=== PATIENT | female | born 1995 | race Caucasian/White ===

== ENCOUNTER 2020-03-20 18:35 | Emergency (ER) | payer OTHER, SELFPAY ==
--- NOTE | ~2020-03-20 | CT_ITS ---
EXAMINATION: CT abdomen pelvis w con INDICATION: Lower abdominal pain TECHNIQUE: Computed tomographic images of the abdomen and pelvis were obtained after the administrati on of 100 cc of Omnipaque 350 intravenous contrast. The dose-length product (DLP) was 173.18 mGy-cm. Automated exposure control and iterative reconstruction technique were employed. COMPARISON: None available FINDINGS: The lung bases are clear. The heart size is normal. The liver, spleen, pancreas, gallbladde r, and adrenal glands are normal. There is a 2 mm nonobstructing stone of the right kidney upper pole . The left kidney is unremarkable. No pathologically enlarged abdominal or pelvic lymph nodes are gloria ntified. There is no free intraperitoneal gas or evidence of bowel obstruction. An IUD is present in the uterus in expected position. There is a 3.4 cm cystic lesion of the left adnexa, most consistent with an ovarian cyst. The appendix is normal. A small focus of subcutaneous gas and fatty infiltratio n of the right buttock likely reflects an injection site. IMPRESSION: 1. No CT correlate for the patient's symptoms. Reviewed, dictated and finalized at location A. [facility] [employer] COORDINATOR
[2020-03-20 19:19] VITALS: BP 117/81; PULSE 84; RESP 18; TEMP 36.7; O2SAT 98
[2020-03-20 19:33] LABS: Basophils Absolute Auto 0.1 K/mm3 (0.0-0.1); Basophils Percent Auto 0.9 % (0.2-1.2); Eosinophils Absolute Auto 0.3 K/mm3 (0-0.3); Eosinophils Percent Auto 3.9 % (0-4.4); Hematocrit 35.7 % (37.0-47.0); Hemoglobin 12.1 g/dL (12.0-15.0); Immature Granulocyte Absolute 0.02 K/mm3 (0.00-0.031); Immature Granulocyte Percent A 0.2 % (0-0.5); Lymphocytes Absolute Auto 2.65 K/mm3 (0.9-3.2); Lymphocytes Percent Auto 30.4 % (18.3-44.2); Mean Corpuscular HGB Conc 33.9 g/dl (32-36); Mean Corpuscular Hemoglobin 31.6 pg (26-34); Mean Corpuscular Volume 93.2 fl (80-100); Monocytes Absolute Auto 0.6 K/mm3 (0.1-0.6); Monocytes Percent Auto 6.8 % (2.6-8.5); Neutrophils Percent Auto 57.8 % (45.5-73.1); Platelet Count Result 325 k/mm3 (150-375); Red Blood Count 3.83 M/mm3 (4.2-5.4); Red Cell Distribution Width 12.2 % (11.5-14.5); White Blood Count 8.7 K/mm3 (4.5-10.0)
[2020-03-20 19:54] LABS: Alanine Aminotransferase 16 U/L (4-35); Albumin Level 4.5 g/dL (3.5-5.1); Alkaline Phosphatase 46 U/L (38-126); Anion Gap 9 mmol/L (8-16); Aspartate Amino Transferase 29 U/L (14-36); Bilirubin,Total 0.3 mg/dL (0.2-1.3); Blood Urea Nitrogen 11 mg/dL (7-17); Calcium 9.6 mg/dL (8.4-10.2); Carbon Dioxide 28 mmol/L (22-30); Chloride 102 mmol/L (98-107); Estimated CRCL calculation 89 ml/min; Estimated Glomerular Filt Rate > 60; Glucose 103 mg/dL (65-105); Lipase 106 U/L (23-300); Potassium 3.8 mmol/L (3.4-5.0); Sodium 139 mmol/L (137-145)
[2020-03-20 22:02] VITALS: BP 125/80; PULSE 70; RESP 18; O2SAT 99
[2020-03-21 00:31] VITALS: BP 118/79; PULSE 75; RESP 16; O2SAT 100
--- NOTE | 2020-03-21 01:08 | ED.ABDPAIN ---
HPI - Abdominal Pain General Chief Complaint: Abdominal Pain Stated Complaint: pelvic pressure x 1 week, LLQ pain Time Seen by Provider: 03/21/20 01:01 Source: patient Mode of arrival: ambulatory Limitations: no limitations History of Present Illness HPI narrative: This patient is a 24 year old female with history of left lower abdominal pain intermittently x 1 week . PAtient reports she noticed some pain with sexual intercourse. She also reports intermittent sharp twinges to left lower abdomen. She also reports feeling pressure. She has no pain currently, nausea, vomiting or diarrhea. She denies urinary symptoms. She noticed yellow discharge today. 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 Related Data Allergies Allergy/AdvReac Type Severity Reaction Status Date / Time morphine Allergy Unknown CHOKING Verified 11/17/17 09:31 Review of Systems Review of Systems: All systems reviewed & are unremarkable except as noted in HPI and below Constitutional: Constitutional: Denies chills and Denies fever(s) Cardiovascular: Cardiovascular: Denies chest pain Respiratory: Respiratory: Denies dyspnea Gastrointestinal: Gastrointestinal: Reports abdominal pain, Denies diarrhea, Denies nausea and Denies vomiting Genitourinary: Genitourinary: Denies dysuria and Reports vaginal discharge [facility] Past Medical History Medical History (Updated 03/21/20 @ 04:35 by Oumou Worley MD) Patient denies medical problems Surgical History Surgical History (Updated 03/21/20 @ 01:29 by Oumou Worley MD) History of tonsillectomy Social History Social History (Updated 03/21/20 @ 01:29 by Oumou Worley MD) Smoking status: Never smoker Gender identity (if verbalized by the patient): Female Exam Const: General: alert Orientation/consciousness: patient oriented x3 Eyes: Pupils: Equal, round and reactive pupils present EOM: EOMs intact bilaterally Resp: Effort & Inspection: normal respiratory effort and no retractions Auscultation: clear to auscultation bilaterally Cardio: Rate: regular rate Rhythm: regular rhythm Heart sounds: no murmurs GI: GI Palp: Yes Soft to palpation, Yes Tenderness to palpation present (GI) (suprapubic), No Guarding due to palpation present (GI) and No Rigid due to palpation Auscultation: normal bowel sounds : Speculum Exam - Vagina: abnormal vaginal discharge yellow Bimanual exam- vagina & uterus: cervical motion tenderness Skin: General skin exam: normal color Rashes: no rashes Neuro: General: patient oriented x3 and moves all extremities Course Reevaluation(s) Reevaluation #1: I performed a pelvic exam and patient has cmt and llq tenderness. I was unable to see the IUD on exam. I performed a bedside ultrasound and there appeared to be a large cyst in left pelvis. I discussed with patient findings and discussed CT vs ultrasound. She wants to proceed with CT instead of waiting for die assembler. Date: 03/21/20 Time: 02:19 Vital Signs Vital signs: Vital Signs Temperature 98.0 F 03/20/20 19:19 Pulse Rate 84 03/20/20 19:19 Respiratory Rate 18 03/20/20 19:19 Blood Pressure 117/81 03/20/20 19:19 Pulse Oximetry 98 03/20/20 19:19 Temperature 97.2 F L 03/21/20 02:37 Pulse Rate 78 03/21/20 02:37 Respiratory Rate 20 03/21/20 02:37 Blood Pressure 116/80 03/21/20 02:37 Pulse Oximetry 98 03/21/20 02:37 MDM - Abdominal Pain Lab Data Attestation: I reviewed the patient's lab results. Result diagrams: 03/20/20 19:26 03/20/20 19:26 Labs: Lab Results 03/20/20 03/20/20 03/21/20 Range/Units 19:26 19:26 00:25 WBC 8.7 (4.5-10.0) K/mm3 RBC 3.83 L (4.2-5.4) M/mm3 Hgb 12.1 (12.0-15.0) g/dL Hct 35.7 L (37.0-47.0) % MCV 93.2 (80-100) fl MCH 31.6 (26-34) pg MCHC 33.9 (32-36) g/dl RDW 12.2 (11.5-14.5) % Plt Count 325 (150-375) k/mm3 MPV 10.0 (7.4-10.4) f
[2020-03-21 01:24] LABS: Add Urine Microscopic? YES; Appearance Urine Clear (Clear); Bacteria Urine Trace /hpf; Bilirubin Urine Negative (Negative); Blood Urine Negative (Negative); Color Urine Yellow (Yellow); Glucose Urine UA Negative (Negative); Ketones Urine Trace mg/dL (Negative); Leukocyte Esterase Ur Negative LEU/UL (Negative); Mucus Urine Rare /lpf; Nitrate Urine Negative (Negative); Protein Urine Negative (Negative); RBC Urine 0-2 /hpf (0-2); Specific Grav Ur 1.017 (1.001-1.035); Squamous Epithelial Cell Urine Few /hpf (Few); Urobilinogen Urine Negative mg/dL (<2.0); WBC Urine 0-3 /hpf
[2020-03-21] MEDS: DOXYCYCLINE HYCLATE 100 MG TABLET PO (02:24)
[2020-03-21] MEDS: cefTRIAXone 250 MG VIAL IM (02:32)
[2020-03-21] MEDS: LIDOCAINE HCL 1% LOCAL INJ 20 ML VIAL (02:33)
[2020-03-21 02:37] VITALS: BP 116/80; PULSE 78; RESP 20; TEMP 36.2; O2SAT 98
== END 2020-03-21 05:05 | disposition home or self-care (01) ==
PROVIDERS: Emergency Medicine; Emergency Provider General Practice
DX: N83.202 Unspecified ovarian cyst, left side (principal); Z97.5 Presence of (intrauterine) contraceptive device
CPT/HCPCS: 36415; 74177; 80053; 81001; 81025; 83690; 85025; 87070; 87491; 87591; 87808; 96372; 99284; A9270; J0696; Q9967

== ENCOUNTER 2023-01-10 09:37 | Outpatient (CLI) | payer OTHER, SELFPAY | END 2023-01-10 09:38 | disposition home or self-care (01) | LOC: ANHBWCAUD 09:39 | PROVIDERS: PCP Nurse Practitioner Family; Visit Provider Otolaryngology | DX: H90.2 Conductive hearing loss, unspecified (principal); H61.20 Impacted cerumen, unspecified ear | CPT/HCPCS: 92552; 92556; 92567 ==

== ENCOUNTER 2025-02-04 10:28 | Emergency (ER) | payer OTHER, SELFPAY ==
--- NOTE | ~2025-02-04 | CT_ITS ---
EXAMINATION: CT brain wo con DATE: 02/04/2025 11:24 INDICATION: [place] headache TECHNIQUE: Computed tomography (CT) of the head was performed without intravenous contrast. Sagittal and coronal reconstructions were performed. The mA was adjusted according to patient size. Iterative reconstruction technique was employed. The dose-length product was 605.33 mGy-cm. COMPARISON: head CT dated 03/01/2019 FINDINGS: No acute intracranial hemorrhage, acute infarction or abnormal extra axial fluid collection. Ventricles are normal and symmetric. No mass/mass effect. The orbits, paranasal sinuses and mastoid air cells are normal. IMPRESSION: 1. Normal head CT. Reviewed, dictated and finalized at location A. IMPRESSION: 1. Normal head CT.
[2025-02-04 10:50] VITALS: BP 127/82; PULSE 94; RESP 18; TEMP 36.8; O2SAT 98
--- OUTSIDE RECORDS SUMMARY | 2025-02-04 11:12 | XMS_ITS | Clinical Summary ---
Author Organization [facility] Address [address] [place] [address] Phone Care Team Providers Care Unemployment Inspector Name Role Phone Provider, Unknown Primary Care Provider Unavaila ble Social History Tobacco Use Types Packs/Day Years Used Date Smoking Tobacco: Never Assessed Comments Unknown Sex and Gender Information Value Date Recorded Sex Assigned at Not on file Legal Sex Female 8:59 PM CDT Gender Identity Not on file Sexual Orientation Not on file Plan of Treatment Not on file Care Teams Unemployment Inspector Relationship Specialty Start Date End Date Provider, Unknown UNKNOWN PCP - General 09/08/16
--- OUTSIDE RECORDS SUMMARY | 2025-02-04 11:12 | XMS_ITS | Clinical Summary ---
Author Organization [facility] Address [address] [place] [id number] Care Team Providers Care Roll Reclaimer Name Role Phone Unavailable Primary Care Provider Unavailabl e Social History Tobacco Use Types Packs/Day Years Used Date Smoking Tobacco: Never Assessed Comments Unknown Sex and Gender Information Value Date Recorded Sex Assigned at Not on file Legal Sex Female 7:29 PM CDT Gender Identity Not on file Sexual Orientation Not on file Plan of Treatment Health Maintenance Due Date Last Done Comments Cervical Cancer Screening Pa p Smear (Age 30 to 64) Every 3 Years 1993 Annual Physical 1996 Hepatitis C 09/11/2011 DTaP, Tdap and Td Vaccines ( 1 - Tdap) 2012 Hepatitis B Vaccines (1 of 3 - 19+ 3-dose series) 2012 HPV Vaccines (1 - 3-dose SCD M series) 2020 Cervical Cancer Screening Pa p with HPV Testing (Age 30 to 64) Every 5 Years 09/11/2023 Cervical Cancer Screening with HPV 09/11/2023 COVID-19 Vaccine ( - 2023-2 5 season) 2025 Meningococcal B Vaccine Aged Out No l onger eligible based on patient's age to complete this topic Meningococcal Vaccine Aged Out No fariba raad eligible based on patient's age to complete this topic Pneumococcal Vaccine: Pediat rics (0 to 5 Years) and At-Risk Patients (6 to 49 Years) Aged Out No longer eligible b ased on patient's age to complete this topic RSV Immunizations Under 20 Months Aged Out No longer eligible based on patient's age to complete this topic
--- OUTSIDE RECORDS SUMMARY | 2025-02-04 11:12 | XMS_ITS | Data Portability ---
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 Balbuena Call office if worse, ER if life threating illness RTC 6 months and PRN She voices understanding of plan and agrees The patient gave verbal consent using TelePhonic services and the consent is documented in the medical record prior to using the service. The patient has been informed of what a TeleMedicine visit is. Patient is located at home. Provider is located at office. Names and roles of persons in addition to the patient and provider participating in telemedicine services include none. The patient had a 15 minute TeleMedicine consultation via phone call to discuss the following: [email or web address] Not available 11/03/2022 16:48:23 Plan of Treatment Reminders Order Date Submit Date Provider Last Modified By Organization Details Last Modified Time Details Appointments Follow Up 20 2024 05:20P M Malissa Donald NP Not available Not available Not available Lab None recorded. Referral physical therapist referral 2022 023 [facility], Occupational [facility], [address] [place], [address], 05/11/2023 16:43:21 Procedures None recorded. Surgeries None recorded. Imaging XR, cervical spine [address] ([facility]), [address] [place], [address], 09/29/2022 10:08:34 electromy ogram + nerve conductio n study - EMG/NC of BUE and BLE [address] [facility], [address] [place], [address], 01/05/2023 16:22:45 Medication Orders omeprazol e 40 mg capsule,d elayed release 2022 023 [id number], [address], [place], [id number], 11/03/2022 16:40:17 Ubrelvy 100 mg tablet 2022 023 [facility], [address] [place] [address], [address], 11/03/2022 16:43:52 Medrol (Suresh) 4 mg tablets in a dose pack [address] [facility] [id number] [place], [place], [id number], 11/03/2022 16:04:15 Patient TargetsNo targets recorded. Patient Instructions Encounter Date Encounter Id Patient Instructions Last Modified By Organization Details Last Modified Time 11/03/2022 [id number] Due to the COVID-19 (Novel Coronavirus) pandemic, it is within this context (and with the understanding that this method of patient encounter is in the patient s best interest as well as the health and safety of other patients and the public) that [facility] is being provided for this patient encounter rather than a gtjn-kl-owoi visit. This patient encounter is appropriate at this time. This patient has been advised of the potential risks and limitations of this mode of treatment (including, but not limited to, the absence of in-person examination) and has agreed to be treated in a remote fashion despite these risks. Any and all of the patient s /patient s family s questions on this issue have been answered, and I have made no promises or guarantees to the patient. The patient has also been advised to contact this office for worsening conditions or problems, and seek emergency medical treatment and/or call 911 if the patient deems either necessary. HPI and/or vitals, if listed, were provided by the patient. Due to the COVID-19 (Novel Coronavirus) pandemic, it is within this context (and with the understanding that this method of patient encounter is in the patient s best interest as well as the health and safety of other patients and the public) that [facility] is being provided for this patient encounter rather than a bfmv-ge-xxvc visit. This patient encounter is appropriate at this time. This patient has been advised of the potential risks and limitations of this mode of treatment (including, but not limited to, the absence of in-person examination) and has agreed to be treated in a remote fashion despite these risks. Any and all of the patient s /patient s family s questions on this issue have been answered, and I have made no promises or guarantees to the patient. The patient has also been advised to contact this office for worsening conditions or problems, and seek emergency medical treatment and/or call 911 if the patient deems either necessary. HPI and/or vitals, if listed, were provided by the patient. [email or web address] Not available 11/03/2022 16:47:42 Reason for Referral Physical Therapist Referral for Neck pain Referring Physician: Yamini Baker, Internal Medicine, Encounter Date: 09/15/2022 Results Created Date Observation Date Name Description Value Unit Range Abnormal Flag Note LastModifiedBy Organization Detail LastModifiedTime 03/07/2003/07/2022 INFLU DIAN A influenza A RNA, RT-PCR positi ve Not Available [facility] (Lab) [address] [place], [address], 03/07/2022 13:17:14 03/07/2003/07/2022 INFLU DIAN A influenza B RNA, RT-PCR negati ve Not Available [facility] (Lab) [address] [place], [address], 03/07/2022 13:17:14 03/07/20 22 03/07/2022 SARS- COV-2 RNA(C OVID1 9),RT -PCR sars-cov-2 RNA(covid19) ,RT-PCR negati ve This test has been autho rized by the FDA under an Emerg ency Use Autho rizat ion (EUA) for use by autho rized labor atori es. Negat saskia resul ts do not precl ude SARS- CoV-2 and shoul d not be used as the sole basis for treat ment or other patie nt manag ement decis ions. Test resul ts shoul d be corre lated with the clini magalie histo ry, epide miolo gical data, and other data avail able to the clini thomas evalu ating the patie nt. Cuca gooden w the Fact Sheet s for healt h care provi ders and patie nts at the [facility] jimi: https ://ww w.fda .gov/ media /1363 12/do wnloa d https ://ww w.fda .gov/ media /1363 13/do wnloa d https ://ww w.fda .gov/ media /1421 92/do wnloa d https ://ww w.fda .gov/ media /1421 91/do wnloa d Jeremy paul y: Real- Time RT-PC R Not Available [facility] (Lab) [address] [place], [address], 03/07/2022 13:13:14 03/07/20 22 03/07/2022 INFLU DIAN A/B ANTIG EN RAPID lot # [id number] Not Available [facility] (Lab) [address] [place], [address], 03/07/2022 13:08:53 03/07/20 22 03/07/2022 INFLU DIAN A/B ANTIG EN RAPID flu A negati ve negati ve Not Available [facility] (Lab) [address] [place], [address], 03/07/2022 13:08:53 03/07/20 22 03/07/2022 INFLU DIAN A/B ANTIG EN RAPID flu B negati ve negati ve THIS TEST CAN NOT DISTI NGUIS H INFLU DIAN A VIRUS SUBTY PES. ALSO, PLEAS E NOTE THAT A NEGAT SASKIA RESUL T DOES NOT EXCLU DE INFLU DAIN VIRUS INFEC TION. IF MORE CONCL USIVE TESTI NG IS RIKA ED, FOLLO W-UP CONFI RMATO RY TESTI NG WITH RT-PC R IS JOSÉ MOELLERD. Not Available [facility] (Lab) [address] [place], [address], 03/07/2022 13:08:53 03/07/20 22 03/07/2022 INFLU DIAN A/B ANTIG EN RAPID valid QC positi ve Not Available [facility] (Lab) [address] [place], [address], 03/07/2022 13:08:53 03/07/20 22 03/07/2022 INFLU DIAN A/B ANTIG EN RAPID source remote inpatient coder swab Not Available [facility] (Lab) [address] [place], [address], 03/07/2022 13:08:53 09/16/19 23 09/15/2022 XR, cervi magalie spine , 4 or 5 view [facility] [address] [place] [address] Patien t Name: GIANNA HOLBROOK Access ion #: [id number] Sex: F : 1995 0 Locati on: RAD Attend ing Physic nury: YAMINI BAKER Orderi ng Physic nury: YAMINI BAKER Exam Date: 023 11:21 AM Exam Name: XR C SPINE 4-5V Admitt ing Diagno sis(es ): RADIOL OGY REPORT - FINAL EXAM: XR C SPINE 4-5V HISTOR Y: CERVIC ALGIA 27-yea r-old female with neck pain, no known injury . COMPAR RADHA: None availa ble. TECHNI QUE: AP, latera l, obliqu e, and odonto id views of the cervic al spine were perfor med. FINDIN GS: No cervic al fractu re, listhe sis, or prever tebral soft tissue edema are identi fied. No signif icant degene rative change s. There is straig htenin g of normal cervic al lordos is. The obliqu e films do not demons trate signif icant bony forami nal stenos is bilate rally. There are small bilate ral C7 ribs. IMPRES [place]: Page 1 of 2 [facility] Name: GIANNA HOLBROOK NA Access ion #: [id number] Sex: F : 1995 0 Exam Date: 11:21 AM Exam Name: XR C SPINE 4-5V Admitt ing Diagno sis(es ): 1. No fractu re or signif icant degene rative change s of the cervic al spine. 2. Straig htenin g of normal cervic al lordos is may be due to muscle spasm. 3. Small bilate ral C7 ribs incide ntally noted. Create d and electr onical ly signed by: Brady orellana MD Signed Date: 11:47 AM (CT) Dictat ed by: Brady orellana MD DD: 11:47 AM (CT) DT: 11:47 AM (CT) Page 2 of [address] (Imaging) [address] [place] [address], [address], 09/15/2022 14:49:30 01/06/20 23 01/05/2023 elect romyo gram + nerve condu ction study No observ ation record ed. [email or web address] [facility] PT, OT, Speech Therapy [address] [facility] , [place], [address], 01/11/2023 11:26:42 Result Notes Documentation Provider Name and Address Organization Details Recorded Time Xr, Cervical Spine, 4 Or 5 View : [facility] [address] [place] [address] Patient Name: MARY ANNE HOLBROOK Sex: F : 1995 Location: [facility] Attending Physician: YAMINI BAKER Ordering Physician: YAMINI BAKER Exam Date: 09/15/2022 11:21 AM Exam Name: XR C SPINE 4-5V Admitting Diagnosis(es): RADIOLOGY REPORT - FINAL EXAM: XR C SPINE 4-5V HISTORY: CERVICALGIA 27-year-old female with neck pain, no known injury. COMPARISON: None available. TECHNIQUE: AP, lateral, oblique, and odontoid views of the cervical spine were performed. FINDINGS: No cervical fracture, listhesis, or prevertebral soft tissue edema are identified. No significant degenerative changes. There is straightening of normal cervical lordosis. The oblique films do not demonstrate significant bony foraminal stenosis bilaterally. There are small bilateral C7 ribs. IMPRESSION: Page 1 of 2 [facility] Patient Name: MARY ANNE HOLBROOK Sex: F : 1995 Exam Date: 09/15/2022 11:21 AM Exam Name: XR C SPINE 4-5V Admitting Diagnosis(es): 1. No fracture or significant degenerative changes of the cervical spine. 2. Straightening of normal cervical lordosis may be due to muscle spasm. 3. Small bilateral C7 ribs incidentally noted. Created and electronically signed by: Brady Gan MD Signed Date: 09/15/2022 11:47 AM (CT) Dictated by: Brady Gan MD (CT) (CT) Page 2 of 2 BRENDA Gauthier, [employer] 09/15/2022 14:49:30 Problems Name Problem SNOMED Code Status Onset Date Resolution Date Notes Provider Name and Address Organization Details Recorded Time Pain of right wrist 9536625134661 00 Active 2021 Not Available [facility] 3 11:08:46 Vitamin D deficiency 02845998 Active 2021 Not Available [facility] 3 11:08:46 Ganglion cyst of right wrist 8473857895717 09 Active 2021 Not Available [facility] 3 11:08:46 Fever 534156502 Active 2021 Not Available [facility] 3 11:08:46 Muscle tension pain 978484875 Active 2022 Not Available [facility] 3 11:08:46 Neck pain 08435379 Active 2022 Not Available [facility] 3 11:08:46 Paresthesi a 01014905 Active 2022 Not Available [facility] 3 11:08:46 Migraine 80613915 Active 2022 STELLA Granados-C [address], [place] [place] [address], [address] , [employer] 3 14:57:58 Generalize d anxiety disorder 70499857 Active 2022 STELLA Granados-C [address], [address], [address] , [employer] 3 14:58:08 Acid reflux 865815629 Active 2022 STELLA Granados-C [address], [address], [place], [address] , [employer] 3 14:58:11 Psoriasis 4060166 Active 2022 STELLA Granados-C [address], [address], [place], [address] , [employer] 3 14:58:16 Impacted cerumen of bilateral ears 7133990205377 108 Active 2022 Yamini Honggracy [facility] [address] [facility] [place] [address], [place], [address] , [employer] [facility] 3 14:58:22 Weight gain 3627673 Active 2022 Yamini Honggracy [facility] [address] [facility], [place] [address], [place], [address] , [employer] 3 14:58:31 Acute otitis media 1679411 Active 2022 [facility] [address] [facility], [place] [address], [place], [address] , [facility] 3 14:59:42 Allergic rhinitis 87920159 Active 2022 Adilene romero, [employer] [facility] 3 14:40:12 Pain of ear 508513989 Active 2022 Adilene romero, [employer] [facility] 3 17:32:58 Problem Notes None recorded. Medical Equipment None Reported. Allergies Allergen ID Allergen Name Allergen Category Reaction Reaction Severity Criticality Documentation Date Start Date Code Code System Note Provider Name and Address Organization Details Recorded Time 44032 morphine medicatio n anaphylax is Not available Not available 07/06/2022 7052 RxNorm Not Available [facility] 3 00:30:58 17430 Monistat Simple Therapy medicatio n Not available Not available Not available 07/06/2022 43863 72 RxNorm Not Available [facility] 3 00:30:58 Medications Name Sig Start Date Stop Date Status Note LastModified by Organization Details LastModified Time buspirone 5 mg tablet active Not Available Not Available No t Available doxycycline hyclate 100 mg capsule active Not Available Not Available N ot Available cetirizine 10 mg tablet Take 1 tablet every day by oral route. 2022 active Not Available Not Available Not Avai lable azithromyci n 250 mg tablet Take 1 dose pk by oral route. active Not Available Not Available No t Available nystatin 100,000 unit/gram topical ointment 06/23 completed Not Available Not Available Not Available fluconazole 150 mg tablet take 1 PO x1, may repeat dose in 3 days if needed active Not Available Not Available No t Available valacyclovi r 1 gram tablet 06/23 completed Not Available Not Available Not Available hydrocodone 5 mg-acetamin ophen 325 mg tablet 11/01 completed Not Available Not Available Not Available fluconazole 200 mg tablet 02/16 completed Not Available Not Available Not Available prednisone 20 mg tablet 06/23 completed Not Available Not Available Not Available rizatriptan 10 mg tablet Take 1 PO at the start of a migraine, if no relief can repeat dose in 2h, no more than 2 tabs per 24 hour period active Not Available Not Available No t Available propranolol ER 60 mg capsule,24 hr,extended release Take 1 capsule every day by oral route. active Not Available Not Available No t Available hydroxyzine pamoate 50 mg capsule Take 1 tab PO PRN FOR PANIC ATTACKS 06/23 completed Not Available Not Available Not Available penicillin V potassium 500 mg tablet active Not Available Not Available Not Available metronidazo le 500 mg tablet TAKE ONE TABLET BY MOUTH EVERY TWELVE HOURS 11/03 completed Not Available Not Available Not Available tretinoin 0.05 % topical cream active Not Available Not Available Not Available valacyclovi r 500 mg tablet active Not Available Not Available Not Available omeprazole 40 mg capsule,del ayed release Take 1 capsule every day by oral route. active Not Available Not Available No t Available amitriptyli ne 50 mg tablet Take 1 tablet every day by oral route at bedtime. active Not Available Not Available No t Available acetaminoph en 500 mg tablet active Not Available Not Available Not Available spironolact one 25 mg tablet active Not Available Not Available Not Available amoxicillin 500 mg tablet Take 1 tablet every 8 hours by oral route for 7 days. active Not Available Not Available No t Available propranolol 10 mg tablet active Not Available Not Available Not Available amitriptyli ne 25 mg tablet Take 1 tablet every day by oral route at bedtime. 06/23 completed Not Available Not Available Not Available benzonatate 100 mg capsule 06/09 completed Not Available Not Available Not Available triamcinolo ne acetonide 0.1 % topical ointment active Not Available Not Available Not Available clindamycin 2 % vaginal cream 10/13 /2022 completed Not Available Not Available Not Available hydroxyzine HCl 25 mg tablet Take 1 tab PO PRN FOR PANIC ATTACKS, max 3 tabs per day active Not Available Not Available No t Available metoprolol succinate ER 25 mg tablet,exte nded release 24 hr active Not Available Not Available Not Available ergocalcife rol (vitamin D2) 1,250 mcg (50,000 unit) capsule Take 1 capsule every week by oral route. 06/23 completed Not Available Not Available Not Available methylpredn isolone 4 mg tablets in a dose pack Take 1 dose pk by oral route. 11/03 completed Not Available Not Available Not Available clobetasol 0.05 % scalp solution active Not Available Not Available Not Available ondansetron 4 mg disintegrat ing tablet active Not Available Not Available N ot Available fluticasone propionate 50 mcg/actuati on nasal spray,suspe nsion [place] 1 spray every day by intranasa l route. active Not Available Not Available No t Available amoxicillin 875 mg-potassiu m clavulanate 125 mg tablet active Not Available Not Available Not Available amoxicillin 500 mg-potassiu m clavulanate 125 mg tablet TAKE ONE TABLET BY MOUTH EVERY TWELVE HOURS AFTER MEALS FOR 7 DAYS active Not Available Not Available No t Available escitalopra m 10 mg tablet active Not Available Not Available Not Available escitalopra m 20 mg tablet active Not Available Not Available Not Available ciprofloxac in 0.3 %-dexametha sone 0.1 % ear drops,suspe nsion active Not Available Not Available Not Available bupropion HCl XL 150 mg 24 hr tablet, extended release Take 1 tablet every day by oral route in the morning. 06/23 completed Not Available Not Available Not Available escitalopra m 5 mg tablet active Not Available Not Available Not Available selenium sulfide 2.25 % shampoo active Not Available Not Available Not Available aripiprazol e 2 mg tablet active Not Available Not Available Not Available quetiapine 50 mg tablet active Not Available Not Available Not Available lidocaine 2 % mucosal jelly in applicator active Not Available Not Available N ot Available Ubrelvy 100 mg tablet Take 1 PO at start of headache, if no relief can repeat dose in 2h, no more than 2 tabs per 24h period active Not Available Not Available No t Available Qulipta 60 mg tablet Take 1 tablet every day by oral route. 06/23 completed Not Available Not Available Not Available [employer] COVID-19 Antigen Home Test kit 06/23 completed Not Available Not Available Not Available Vitals Date Recorded Body mass index (BMI) Body height Oxygen saturation Oxygen saturation in Arterial blood by Pulse oximetry Heart rate Body temperature Body weight Systolic And Diastolic Provider Name and Address Organization Details Last Updated DateTime 3 24.2 kg/m2 154.94 cm 100 % 100 % 74 /min 97.7 [degF] 64238.8 2 g 114/72 mm[Hg] Not Available [facility] 3 00:28:43 Date Recorded Body height Body mass index (BMI) Body weight Body temperature Heart rate Oxygen saturation Oxygen saturation in Arterial blood by Pulse oximetry Systolic And Diastolic Provider Name and Address Organization Details Last Updated DateTime 3 154.94 cm 25.1 kg/m2 79766.7 9 g 98 [degF] 94 /min 98 % 98 % 118/72 mm[Hg] Monica Nj [facility] [employer] [facility] 3 11:48:53 Date Recorded Body height Provider Name an d Address Organization Details Last Updated DateTime 11/03/2022 154.94 cm Monica Nj [facility] 11/03/2022 16:03:59 Date Recorded Body height Provider Name an d Address Organization Details Last Updated DateTime 01/13/2022 154.94 cm Not Available [facility] 3 00:28:44 Date Recorded Body mass index (BMI) Body height Body weight Provider Name and Address Organization Details Last Updated DateTime 02/16/2022 21.5 kg/m2 154.94 cm 33587.53 g Not Available [facility] 07/06/2022 00:28:47 Social History Question Answer Notes LastModified by Organization Details LastModified Time Tobacco Smoking Status Former Smoker quit 12/16/21 Not Available [facility] 07/06/2022 00:26:53 Do You Have An Advance Directive? No [email or web address].0301 [id number] Information not available 07/06/2022 What Is Your Level Of Caffeine Consumption? Heavy MIGRATION.0301 [id number] Information not available 07/06/2022 In The 14 Days Before Symptom Onset, Have You Had Close Contact With A Laboratory-confi rmed COVID-19 While That Case Was Ill? No MIGRATION.030 [id number] Information not available 07/06/2022 In The 14 Days Before Symptom Onset, Have You Had Close Contact With A Person Who Is Under Investigation For COVID-19 While That Person Was Ill? No MIGRATION.0301 [id number] Information not available 07/06/2022 What Type Of Diet Are You Following? REGULAR MIGRATION.030 [id number] Information not available 07/06/2022 What Is The Highest Grade Or Level Of School You Have Completed Or The Highest Degree You Have Received? [id number] MIGRATION.030 [id number] Information not available 07/06/2022 Have There Been Any Changes To Your Family Or Social Situation? No MIGRATION.030 [id number] Information not available 07/06/2022 What Is The Fluoride Status Of Your Home? Unknown MIGRATION.0301 [id number] Information not available 07/06/2022 When Did You Quit Smoking? 6-10yearssincelastc igarette MIGRATION.030 [id number] Information not available 07/06/2022 Are There Any Guns Present In Your Home? No MIGRATION.0301 [id number] Information not available 07/06/2022 Do You Use Insect Repellent Routinely? No MIGRATION.0301 [id number] Information not available 07/06/2022 Where Do You Live? SingleLevelHouse MIGRATION.0301 [id number] Information not available 07/06/2022 Do You Have A Medical Power Of [place]? No MIGRATION.0301 [id number] Information not available 07/06/2022 What Was The Date Of Your Most Recent Tobacco Screening? 11/03/2022 [email or web address] Information not available 11/03/2022 Do You Have Any Pets? Yes MIGRATION.0301 [id number] Information not available 07/06/2022 What Is Your Relationship Status? Single MIGRATION.0301 [id number] Information not available 07/06/2022 Do You Use Your Seat Belt Or Car Seat Routinely? Yes MIGRATION.0301 [id number] Information not available 07/06/2022 Do You Have Smoke And Carbon Monoxide Detectors In Your Home? Yes MIGRATION.0301 [id number] Information not available 07/06/2022 Are You Passively Exposed To Smoke? No MIGRATION.0301 [id number] Information not available 07/06/2022 Are There Any Smokers In Your House? Yes MIGRATION.0301 [id number] Information not available 07/06/2022 How Much Tobacco Do You Smoke? No Was 1/2ppd MIGRATION.0301 [id number] Information not available 07/06/2022 Do You Use Sunscreen Routinely? No MIGRATION.0301 [id number] Information not available 07/06/2022 Have You Recently Traveled Abroad? No MIGRATION.0301 [id number] Information not available 07/06/2022 Do You Have Any Dietary Restrictions? No MIGRATION.0301 [id number] Information not available 07/06/2022 Sex: Female Functional Status Question Answer Note LastModified by [employer] Details LastModified Time Do you use any illicit or recreational drugs? No [id number] Information not available 07/06/2022 Do you or have you ever used any other forms of tobacco or nicotine? No [id number] Information not available 07/06/2022 What is your level of alcohol consumption? 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 Heavy [id number] Information not available 07/06/2022 Mental Status Question Answer Note LastModified by [employer] Details LastModified Time Do you feel stressed (tense, restless, nervous, or anxious, or unable to sleep at night)? [id number] Information not available 07/06/2022 Family History Relationship Description Onset Age of this Age Resolved Age Notes LastModified by Organization Details LastModified Time Paternal Grandmother Atrial fibrillation [id number] Not available 07/06/2022 00:27:29 Medical History Condition Response NERVE DISEASE N BLINDNESS N RHEUMATIC FEVER N KIDNEY STONES N BLADDER PROBLEMS N MRSA N OTHER # 1 N POLIO N LUNG DISEASE/DISORDER N HISTORY OF DRUG ABUSE N RADIATION / CHEMOTHERAPY N COPD N Other # 2 N BLOOD DISEASES N EAR OR HEARING PROBLEMS N MUMPS N SHINGLES N BOWEL PROBLEMS N DEPRESSION (INCLUDING POST ) N STROKE/TIA N ULCERS N BENIGN PROSTATIC HYPERPLASIA N MEASLES N HYPOTENSION N MYOCARDIAL INFARCTION N OBESITY N GERD/NAUSEA N ANEURYSM N URINARY/BLADDER/KIDNEY PROBLEMS N CORONARY ARTERY DISEASE (CAD) N ADDICTION CONCERNS N ENDOMETRIOSIS N Impotence N USE OF BLOOD THINNERS N SKIN PROBLEMS N GASTROINTESTINAL DISORDER N PERIPHERAL VASCULAR DISEASE N MUSCLE,JOINT OR BONE PROBLEMS N GASTROINTESTINAL BLEEDING N BLOOD CLOTS N ASTHMA N CATARACTS N ERECTILE DYSFUNCTION N VARICOSITIES N GI PROBLEMS N Low Testosterone N INFERTILITY N AIDS/HIV N CHEMOTHERAPY / RADIATION N LIVER DISEASE N MALE HYPOGONADISM N HYPERTENSION N Deficiency N TOURETTE'S N ANXIETY DISORDER N BLOOD TRANSFUSION N ANEMIA/BLOOD DISORDER N CHRONIC EAR INFECTIONS N BRONCHITIS N TUBERCULOSIS N GLAUCOMA N FOOT PROBLEM N DIVERTICULITIS N CHICKENPOX N SLEEP APNEA N INFECTIOUS DISEASE N HEART ARRHYTHMIA N PROSTATE N INSOMNIA N HIGH CHOLESTEROL / HYPERLIPIDEMIA N HYPERTHYROIDISM N EYE PROBLEMS N EDEMA N CHRONIC PAIN SYNDROME N HYPOTHYROIDISM N CAROTID BLOCKAGE N CONSTIPATION N BACK / NECK PROBLEMS N HAVE YOU BEEN HOSPITALIZED OR SEEN IN [facility] IN THE PAST YEAR ? N ATHEROSCLEROSIS N BREAST PROBLEMS N DIALYSIS N ECZEMA N OSTEOPOROSIS N ARTHRITIS N NO SIGNIFICANT PAST MEDICAL HISTORY N APPENDICITIS N DIABETES, TYPE N BAD TEETH N ENT N HEARTBURN / REFLUX N AUTISM SPECTRUM DISORDER (ASD) N HEPATITIS / LIVER DISEASE N GOUT N SLEEP DISORDER N ALZHEIMER'S DISEASE N Brain Problems N HERPES N DEMENTIA N HEADACHES/MIGRAINES N SEIZURES/EPILEPSY N VASCULAR DISEASE N PACEMAKER N Blood Disorder N DIZZINESS N HEART DISEASE/HEART PROBLEMS N KIDNEY DISEASE N MULTIPLE SCLEROSIS N CARDIAC ARRHYTHMIA N CANCER: SPECIFY N ATRIAL FIBRILLATION N Gall Stones N PULMONARY EMBOLISM N AUTOIMMUNE DISEASE N Gynecological HistoryNo gynecological history recorded. Obstetrics History GPAL:G 0 P 0 0 0 0 Immunizations Vaccine Type Date Status Note Provider Nam e and Address Organization Details Recorded Time COVID-19, mRNA, LNP-S, PF, 30 mcg/0.3 mL dose 12/01/2021 completed Not Available [facility] 3 11:08:47 COVID-19, mRNA, LNP-S, PF, 30 mcg/0.3 mL dose 11/10/2021 completed Not Available [facility] 3 11:08:47 Past Encounters Encounter ID Performer Location Encounter Start Date Encounter Closed Date Diagnosis/Indication Diagnosis SNOMED-CT Code Diagnosis ICD10 Code Diagnosis IMO Codes Diagnosis Note [id number] Ness washington MD [facility] [place] [address] [facility], [place] [address] [place] [address] 06/09/2021 00:00:00 06/09/2021 13:57:13 [id number] MD JAYME [facility] [place] [address] [place] [address] 06/21/2021 00:00:00 06/21/2021 12:14:23 [id number] MD REILLY CoonS[facility] [place] [address] [facility] [address] [place] [address] 06/24/2021 00:00:00 06/24/2021 15:50:04 [id number] MD JAYME Murphy_[facility] [place] [address] [place] [address] 07/19/2021 00:00:00 07/19/2021 09:32:02 [id number] MD REILLY [facility] [place] [address] [facility] [address] [place] [address] 07/22/2021 00:00:00 07/22/2021 20:52:54 [id number] MD JAYME [facility] [place] [address] [place] [address] 09/02/2021 00:00:00 09/02/2021 11:27:10 [id number] MD JAYME [facility] [place] [address] [place] [address] 10/21/2021 00:00:00 10/21/2021 11:36:01 [id number] MD REILLY [facility] [place] [address] [facility] [address] [place] [address] 11/01/2021 00:00:00 11/01/2021 13:10:14 [id number] MD JAYME Coon[facility] [place] [address] [address] 12/02/2021 00:00:00 12/02/2021 13:06:36 [id number] Ness washington MD [facility] [address] [address] 12/16/2021 00:00:00 12/16/2021 13:35:26 [id number] MEERA GranadosP-C [facility] [address] [address] 01/13/2022 00:00:00 01/13/2022 13:05:36 [id number] Ness washington MD [facility] [address] [address] 02/16/2022 00:00:00 02/16/2022 12:44:42 [id number] Ness washington MD [facility] [address] [address] 06/23/2022 00:00:00 06/23/2022 15:49:43 [id number] Malissa Donald NP [facility] [address] [address] 01/31/2022 00:00:00 02/01/2022 13:03:13 [id number] Malissa Donald NP [facility] [address], [address] [address] 02/27/2022 00:00:00 02/27/2022 18:50:05 [id number] Malissa Donald NP [facility] [address] [facility] [address] 04/03/2022 00:00:00 04/03/2022 18:49:05 [id number] Malissa Donald NP [facility] [address] [address] 05/09/2022 00:00:00 05/09/2022 18:15:41 [id number] Malissa Donald NP [facility] [address]43 [facility], [address] [address] 06/21/2022 00:00:00 06/21/2022 19:21:22 [id number] Ness washington MD [facility] [address] [facility], [place] [address] 09/15/2022 11:40:58 09/15/2022 12:08:12 Neck pain 61303978 M54.2 Offered muscle relaxant-s he declines she is worried about side effects Start Medrol Dosepak Get x-ray Start physical therapy If no improvemen t at follow-up will consider advanced imaging Paresthesia [id number] R20 .2 Get EMG/NC Medrol Dosepak as above ER precaution s discussed [id number] Malissa Donald NP [facility] [address] [place] [address] 09/28/2022 18:02:29 10/03/2022 14:20:30 [id number] Ness washington MD [facility] [address] [place] [address] 11/03/2022 16:02:30 11/03/2022 16:44:44 Pain of right wrist [id number] [address] Rivera/p surgery Migraine 72472100 G43.90 9 has tried and failed sumatripta n and rizatripta non daily amitriptyl ine and prn ubrelvy she is aware of side effects, risks, benefitsam itriptylin e increase did not help, propranolo l did not help eitherstop ped Qlipta due to GERD symptoms CT angio of brain was unremarkab leshe declines neurology referral- has seen Dr. Quiroz in the past, does not want another referralto ER if severe ROME/neuro symptoms Vitamin D deficiency 347 90402 E55.9 on supplement Generalize d anxiety disorder 13707353 F41.1 now [facility] [place] hydroxyzin ecall office if any change in mood or behavior Acid reflux 041960751 K2 1.9 on omeprazole -ease were side effects, risks, and benefitsRe commend she take it daily for 2 weeks and then try to transition to p.r.n. dosing only- call office if no improvemen t with daily dosing and we can add hs pepcidacid reduction lifestyle measures discussed Psoriasis 4792429 L40.9 improved after a course of clobetasol prnget appointmen t with Dermatolog y- already has referral, encouraged her to make appt Impacted c erumen of bilateral ears [id number] 640408 H61.23 get appt with ENT- has been referred Neck pain 02646050 M54.2 s/p XRdid not go to PTnow improved Paresthesia 06140528 R20 .2 Get EMG/NC - has scheduled for next monthER precaution s discussed [id number] Malissa Donald NP [facility] [address] [address] 12/25/2022 17:00:40 12/25/2022 17:29:51 [id number] Malissa Donald NP [facility] [address] [address] 03/22/2023 16:37:06 03/22/2023 17:14:33 [id number] Malissa Donald NP [facility] [address] [address] 06/11/2023 16:30:23 06/18/2023 10:00:31 [id number] Malissa Donald NP [facility] [address] [address] 12/18/2023 18:18:49 12/21/2023 10:59:34 [id number] [facility] [address] [address] 01/10/2024 18:32:54 01/11/2024 11:38:58 [id number] Malissa Donald NP [facility] [address] [address] 03/25/2024 10:51:24 03/25/2024 11:34:30 [id number] Mlaissa Donald NP [facility] [address] [address] 05/29/2024 18:38:46 05/29/2024 19:13:55 [id number] Malissa Donald NP [facility] [address] [address] 06/25/2024 14:12:18 06/25/2024 16:09:09 [id number] Malissa Donald NP [facility] [address] [address] 11/04/2024 15:44:16 11/05/2024 12:40:32 Health Concerns Section Related Observation LastModified by Organization Detai ls LastModified Time None Recorded Concern Status LastModified by Organization Details LastModified Time None Recorded Advance Directives Directive N: Payers Insurance Date Sequence Insurance Name Policy Number Policy Stoddard Covered Member ID Stoddard Member ID Guarantor Name 01/25/2025 1 [facility] (MEDICAID HMO) [id number] Mary Anne Moss [id number] Mary Anne Holbrook Notes Date Note Type Note Provider Name and Address Organization Details Recorded Time 09/15/2022 text/html Mary Anne presents today for acute visit. She has 2 different issues she would like to address. First couple she has been having some numbness down her right arm and into the 3rd 4th and 5th finger. It extends from her elbow down to her fingertips. It does not occur every day but is worse when she uses the computer. Sometimes it also occurs on the left arm. She also reports that sometimes she has paresthesias that go down into the legs as well, typically after she has been sitting for long periods of time. She denies any low back pain. Denies any saddle paresthesias and denies any bladder or bowel changes. She also reports that she slept on the love seat over the weekend. She feels like she slept wrong on her neck. Since then she has been having some neck pain and muscle spasms. She cannot turn her head very far to the right. She has tried ppos-bkp-qpaprni anti-inflammatories with no improvement. CHAPIN Granados [address], [facility] [address], [place], [address], [employer] 09/15/2022 13:34:11 11/03/2022 text/html This is a telehealth visit conducted via telephone audio call only- pt requested telehealth as she could not make it into office for appt. Patient agrees to telehealth visit. Multiple attempts were made to connect to patient via [employer] video but we were unable to connect so we proceeded with audio telephone call only. She reports that she did have an appointment to start physical therapy but she had to cancel it as she did not have child care specialist. She reports the neck pain is now resolved. She reports the paresthesia in her hands is improved but not completely gone away. She does have the EMG nerve conduction study scheduled. She thinks that sometime next month. She reports her acid reflux symptoms flare up when she does not take the omeprazole every day. Right now she is only taking as needed. She reports her migraines are well controlled on the Ubrelvy prn and the amitriptyline for prevention. She continues to follow with psychiatry for her mood meds. She denies any SI or HI today. CHAPIN Granados [address] [facility], [place], [address], [employer] 11/03/2022 16:49:16 OBGyn Episode No OBEpisode recorded.
--- OUTSIDE RECORDS SUMMARY | 2025-02-04 11:12 | XMS_ITS | Clinical Summary ---
Author Organization [facility] Address [address] 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 This disclosure is being madepursuant to the Care Everywhere program and may not contain all information available regarding this patient. Last updated 18.[facility] [employer] Allergies Active Allergy Reactions Criticality Noted Date Comments Miconazole 01/03/2017 Morphine 01/03/2017 Medications * Be aware that medications may not be up to date on this document. Alwaysverify current medications with the patient. Vit-Fe Fumarate-FA ( VITAMIN) 28-0.8 MG tablet Take 1 Tab by mouth once daily Active Active Problems Problem Noted Date Diagnosed Date Family history of congenital heart defect; Grandmother of the baby 10/17/2016 Resolved Problems Problem Noted Date Diagnosed Date Resolved Date Irregular heart beat 03/15/2010 017 Immunizations Immunization Administration Dates Next Due Covid Pfizer primary Monovalent 12+ yr 0.3ml ,11/10/2021 Social History Tobacco Use Types Packs/Day Years Used Date Smoking Tobacco: Never Assessed Comments No Sex and Gender Information Value Date Recorded Sex Assigned at Not on file Legal Sex 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 Gender Identity Not on file Sexual Orientation Not on file Last Filed Vital Signs Vital Sign Reading Time Taken Comments Blood Pressure 111/63 02/02/2017 9:07 AM CDT Pulse 106 02/02/2017 9:07 AM CDT Temperature - - Respiratory Rate 16 03/15/2010 1:38 PM COMPUTER HELP DESK SPECIALIST Oxygen Saturation - - Inhaled Oxygen Concentration - - Weight 46.7 kg (102 lb 15.3 oz) 03/15/2010 1:38 PM COMPUTER HELP DESK SPECIALIST Height 157 cm (5' 1.81) 03/15/2010 1:38 PM COMPUTER HELP DESK SPECIALIST Body Mass Index 18.95 03/15/2010 1:38 PM COMPUTER HELP DESK SPECIALIST Plan of Treatment Health Maintenance Due Date Last Done Comments HIV SCREENING 2008 HEPATITIS C SCREENING 09/06/2011 DTAP/TDAP/TD VACCINES (1 - Tdap) 2012 HEPATITIS B VACCINE (1 of 3 - 19+ 3-dose series) 2012 HPV VACCINE (1 - 3-dose SCDM series) 2020 DEPRESSION SCREENING 05/07/2024 COVID-19 VACCINE (3 - 2024-2 6 season) 2025 12/01/2021, 11/10/2021 INFLUENZA VACCINE (#1) 2025 ZOSTER VACCINE (1 of 2) 09/11/2043 HIB VACCINE Aged Out No longer eligi ble based on patient's age to complete this topic MENINGOCOCCAL (Group B) VACCINE SHARED DECISION-MAKING Aged Out No longer eligible based on patient's age to complete this topic MENINGOCOCCAL GROUPS A/C/Y/W VACCINE Aged Out No longer eligible b ased on patient's age to complete this topic PNEUMOCOCCAL VACCINE Aged Out No long er eligible based on patient's age to complete this topic Insurance [facility]
--- OUTSIDE RECORDS SUMMARY | 2025-02-04 11:12 | XMS_ITS | Clinical Summary ---
Author Organization [facility] Address [address] [place] [address] Phone Care Team Providers Care Rotary Surface Grinder Name Role Phone Unavailable Primary Care Provider Unavailabl e Active Problems Problem Noted Date Diagnosed Date High-risk 07/20/2011 Social History Tobacco Use Types Packs/Day Years Used Date Smoking Tobacco: Never Assessed Comments Unknown Sex and Gender Information Value Date Recorded Sex Assigned at Not on file Legal Sex Female 6:08 AM HEAD OF HISTORY Gender Identity Not on file Sexual Orientation Not on file Plan of Treatment Health Maintenance Due Date Last Done Comments DTAP/TDAP/TD VACCINES (1 - Tdap) 2012 HEPATITIS B VACCINES (1 of 3 - 19+ 3-dose series) 11/2012 HPV/Cotest (21-29) 2014 HPV VACCINES (1 - 3-dose SCDM series) 2020 CERVICAL CANCER SCREENING 09/11/2023 HPV/Cotest (30-65) 09/11/2023 PAP SMEAR 09/11/2023 INFLUENZA VACCINE (#1) 2024
--- OUTSIDE RECORDS SUMMARY | 2025-02-04 11:13 | XMS_ITS | Data Portability ---
Author Organization [facility] [place] Address [address] [place] [address] Assessment Encounter Date Assessment Date Assessment LastModified by Organization Details LastModified Time 04/13/2021 04/13/2021 culture sent, vulvar care reviewed f/u wwe [email or web address] Not available 04/13/2021 16:01:28 05/12/2021 05/12/2021 Annual gynecological exam performed. Patient will come back in a year unless there are new symptoms. [email or web address] Not available 05/12/2021 12:51:33 Plan of Treatment Reminders Order Date Submit Date Provider Last Modified By Organization Details Last Modified Time Details Appointments None recorded. Lab bacterial vaginosis + vaginitis panel, vaginal 2023 024 [facility] (Lab), [address] [place], [address], 4 09:59:45 hsv (1+2) igm, serum 2021 [facility] (Lab), [address] [place], [address], 17:22:52 hsv-1 igg Ab, serum 2021 022 [facility] (Lab), [address] [place], [address], 17:22:50 hsv-2 igg Ab, serum 2021 [facility] (Lab), [address] [facility], [place], [address], 17:22:50 hbcab (hepatitis B core Ab) igm, serum 2021 [facility] (Lab), [address] [facility], [place], [address], 17:22:49 HBsAg (hepatitis B surface Ag), serum 2021 [facility] (Lab), [address], [place], [address], 17:22:48 hepatitis C virus Ab, serum 2021 [facility] (Lab), [address] [facility], [place], [address], 17:22:49 unlisted lab - HIV 1/2 antigen/ant ibody, reflex confirmatio n 2021 [facility] (Lab), [address] [facility], [place], [address], 17:22:51 RPR (rapid plasma reagin), serum 2021 [facility] (Lab), [address] [facility], [place], [address], 17:22:51 Referral None recorded. Procedures None recorded. Surgeries None recorded. Imaging None recorded. Medication Orders lidocaine HCl 2 % mucosal jelly 2023 [facility], [address], [place], [id number], 11:55:49 Valtrex 500 mg tablet 2023 024 [facility]60513, [address], [place], [place], [id number], 4 11:55:51 Valtrex 1 gram tablet [address] [facility]29390, [address], [place], [place], [id number], 19:36:04 lidocaine HCl 2 % mucosal jelly 2021 [facility] #04672, [address], [id number], 18:06:50 clindamycin 2 % vaginal cream [address] [facility]49297, [address] [place], [place], [id number], 12:20:05 nystatin-tr iamcinolone 100,000 unit/gram-0 .1 % topical ointment 2021 [facility]12922, [address] [place], [place], [id number], 10:53:47 Diflucan 150 mg tablet [address] [facility] #67058, [address] , [place], [place], [id number], 12:54:58 Patient TargetsNo targets recorded. Patient InstructionsNo instructions recorded. Reason for Referral None Reported. Results Created Date Observation Date Name Description Value Unit Range Abnormal Flag Note LastModifiedBy Organization Detail LastModifiedTime 04/13/20 21 04/13/2021 VAGIN ITIS/ VAGIN OSIS, DNA PROBE satya sp. detection, direct probe Positi ve negati ve abnormal Not Available [facility] (Lab) [address] [facility], [place], [address], 04/14/2021 12:22:59 04/13/20 21 04/13/2021 VAGIN ITIS/ VAGIN OSIS, DNA PROBE gardnerella vag. detection, direct probe Negati ve negati ve Not Available [facility] (Lab) [address] [place], [address], 04/14/2021 12:22:59 04/13/20 21 04/13/2021 VAGIN ITIS/ VAGIN OSIS, DNA PROBE trichomonas vag. detection, direct probe Negati ve negati ve Not Available [facility] (Lab) [address] [facility], [place], [address], 04/14/2021 12:22:59 05/12/19 22 05/12/2021 IMAGE GUIDE D PAP, REFLE X HPV IF ASCUS ONLY image guided Pap, reflex HPV ASCUS only SEE RESULT S BELOW CASE REPOR T: Cytol ogy Gynec ologi maxi Repor t Case: [id number] Autho kee g Provi marlen: Seymour Spangler Colle cted: 05/12 1545 POT PUSHER Order ing Locat ion: [place] [facility] Recei linda: 05/13 0632 First Scree n: Justine Reyes, CT Speci men: Scree maximo Pap - Image d, Cervi x STATE MENT OF ADEQU ACY: Satis facto ry for evalu ation Trans forma tion zone compo nent prese nt Parti ally obscu ring blood prese nt FINAL DIAGN OSIS: Negat saskia for Intra epith elial Lesio n or Ryan coyle (NIL) . Elect lisbeth santa pieetr d by Justine Reyes, CT on 2021 at 11:37 AM ----- ----- ----- ----- ----- ----- ----- ----- ----- ----- ----- ----- ----- ----- ----- ----- ----- ---- COMME NT: Note: This speci men was revie wed by a Cytot echno logis t and/o r Patho logis t (as indic ated in this repor t) after evalu ation using the Thinp rep Imagi ng Syste m. CLINI MAXI INFOR MATIO N: Menst rual Statu s: LMP (if appli cable ): Clini maxi Histo ry/Pr eviou s Pap: Type of Neopl rubio (if appli cable ): Signi fican t Clini maxi Findi ngs: Other Histo ry: Hormo ayleen (if appli cable ): PAP EDUCA DRE L NOTE: The Pap Test is a scree maximo test with an inher ent false negat saskia rate. Liqui d-bas ed sampl ing may decre ase, but will not elimi fern, false negat saskia resul ts. A negat saskia resul t does not precl ude the prese nce and/o r devel opmen t of disea se, since the prese nce of abnor mal cells in the sampl e depen ds on the locat ion of the lesio n and sampl ing techn ique. Michelle nued regul ar scree maximo is the best metho d of cance r preve ntion . If repor kenji cytol ogic findi ng do not corre late with physi maxi and/o r histo rical findi ngs, furth er inves tigat ion is recom mo d, as clini elbert isaac nted. Not Available [facility] (Lab) [address], [place], [address], 05/18/2021 12:39:56 05/12/19 22 05/12/2021 TRICH OMONA S VAGIN ABNER (RRNA ) trichomonas vaginalis ribosomal RNA (rrna) Negati ve negati ve Not Available [facility] (Lab) [address], [place], [address], 05/18/2021 12:39:57 05/12/19 22 05/12/2021 CT/GC (MICHELLE) , THINP REP VIAL chlamydia trachomatis, PCR Negati ve negati ve Not Available [facility] (Lab) [address] [facility], [place], [address], 05/18/2021 12:39:57 05/12/19 22 05/12/2021 CT/GC (MICHELLE) , THINP REP VIAL neisseria gonorrhoeae, PCR Negati ve negati ve Not Available [facility] (Lab) [address], [place], [address], 05/18/2021 12:39:57 02/07/2002/06/2022 MOBIL UNCUS MULIE RIS/C URTIS DEEPAK, RT-PC R, ONE SWAB nm bkr mobiluncus mulieris and mobiluncus curtisii by RT-PCR Negati ve Swab- 1 Vag Cerv Not Available [facility] [address] [place] [address], [address], 02/10/2022 12:03:08 02/07/2002/06/2022 SYLVIA DA VAGIN ITIS PANEL RT-PC R, ONESW AB satya albicans PCR Positi ve abnormal Swab- 1 Vag Cerv Not Available [facility] [address] [place], [address], 02/10/2022 12:03:09 02/07/20 22 02/06/2022 SYLVIA DA VAGIN ITIS PANEL RT-PC R, ONESW AB satya tropicalis PCR Negati ve Swab- 1 Vag Cerv Not Available [facility] [address] [place], [address], 02/10/2022 12:03:09 02/07/20 22 02/06/2022 SYLVIA DA VAGIN ITIS PANEL RT-PC R, ONESW AB satya parapsilosis PCR Negati ve Swab- 1 Vag Cerv Not Available [facility] [address] [place] [address], [address], 02/10/2022 12:03:09 02/07/20 22 02/06/2022 SYLVIA DA VAGIN ITIS PANEL RT-PC R, ONESW AB satya glabrata PCR Negati ve Swab- 1 Vag Cerv Not Available [facility] [address] [place] [address], [address], 02/10/2022 12:03:09 02/07/2002/06/2022 SYLVIA DA STALIN I BY RT-PC R satya krusei by RT-PCR Negati ve Swab- 1 Vag Cerv Not Available [facility] [address] [place] [address], [address], 02/10/2022 12:03:09 02/07/2002/06/2022 BACTE RIAL VAGIN OSIS PANEL RT-PC R, ONESW AB gardnerella vaginalis PCR Positi ve abnormal Swab- 1 Vag Cerv Not Available [facility] [address] [place] [address], [address], 02/10/2022 12:03:10 02/07/20 22 02/06/2022 BACTE RIAL VAGIN OSIS PANEL RT-PC R, ONESW AB atopobium vaginae PCR Negati ve Swab- 1 Vag Cerv Not Available [facility] [address] [place] [address], [address], 02/10/2022 12:03:10 02/07/20 22 02/06/2022 BACTE RIAL VAGIN OSIS PANEL RT-PC R, ONESW AB bacterial vaginosis associated bacteria 2 (bvab2) Negati ve Swab- 1 Vag Cerv Not Available [facility] [address] [place] [address], [address], 02/10/2022 12:03:10 02/07/20 22 02/06/2022 BACTE RIAL VAGIN OSIS PANEL RT-PC R, ONESW AB megasphaera species (type 1 and type 2) PCR Negati ve (Type1 ,Type2 ) Swab- 1 Vag Cerv Type1 :Nega tive Type2 :Nega tive. Not Available [facility] [address] [place], [address], 02/10/2022 12:03:10 02/07/20 22 02/06/2022 BACTE RIAL VAGIN OSIS PANEL RT-PC R, ONESW AB lactobacillu s (bvpanel) PCR See Commen t Swab- 1 Vag Cerv L.cri spatu s: Negat saskia L.thanh senii : Negat saskia L.gas seri : Negat saskia L.ine rs : Posit saskia. Not Available [facility] [address] [place] [address], [address], 02/10/2022 12:03:10 02/07/20 22 02/06/2022 UROGE NITAL MYCOP LASMA /UREA PLASM A PANEL RT-PC R, ONESW AB nm bkr mycoplasma genitalium by RT-PCR Negati ve Swab- 1 Vag Cerv Not Available [facility] [address] [place] [address], [address], 02/10/2022 12:03:10 02/07/20 22 02/06/2022 UROGE NITAL MYCOP LASMA /UREA PLASM A PANEL RT-PC R, ONESW AB nm bkr mycoplasma hominis by RT-PCR Negati ve Swab- 1 Vag Cerv Not Available [facility] [address] [place] [address], [address], 02/10/2022 12:03:10 02/07/20 22 02/06/2022 UROGE NITAL MYCOP LASMA /UREA PLASM A PANEL RT-PC R, ONESW AB nm bkr ureaplasma urealyticum by RT-PCR Negati ve Swab- 1 Vag Cerv Not Available [facility] [address] [place], [address], 02/10/2022 12:03:10 02/08/2002/07/2022 HEPAT ITIS B SURFA CE ANTIG EN hepatitis B surface antigen Non-re active non-re active This assay was perfo rmed using [employer] ratio n reage nts and test kits. Value s obtai mali with other assay metho ds or kits canno t be used inter titus eably . Not Available [facility] [address] [place] [address], [address], 02/10/2022 17:22:48 02/08/2002/07/2022 HEPAT ITIS C ANTIB SINDY SCREE N, REFLE X TO CONFI RMATI ON hepatitis C antibody Non-re active non-re active Antib odies to HCV Not Detec kenji, does not exclu de the possi bilit y of expos ure to HCV. Not Available [facility] [address] [place] [address], [address], 02/10/2022 17:22:49 02/08/2002/07/2022 HEPAT ITIS B CORE, IGM hepatitis B core IgM antibody Negati ve negati ve Not Available [facility] [address] [place] [address], [address], 02/10/2022 17:22:49 02/08/2002/07/2022 HERPE S SMPLE X VIRUS TYPE 1 SPECI FIC AB, IGG herpes simplex virus 1 IgG Negati ve negati ve Not Available [facility] [address] [place] [address], [address], 02/10/2022 17:22:50 02/08/2002/07/2022 HERPE S SMPLE X VIRUS TYPE 1 SPECI FIC AB, IGG herpes simplex virus 1 IgG, quant 0.5 ai 0.0-0. 8 Not Available [facility] [address] [place] [address], [address], 02/10/2022 17:22:50 02/08/20 22 02/07/2022 HERPE S SIMPL EX VIRUS TYPE 2 SPECI FIC AB, IGG herpes simplex virus 2 IgG Negati ve negati ve Not Available [facility] [address] [place], [place] [address], [place], [address], 02/10/2022 17:22:50 02/08/2002/07/2022 HERPE S SIMPL EX VIRUS TYPE 2 SPECI FIC AB, IGG herpes simples virus 2 IgG, quant 0.8 ai 0.0-0. 8 Not Available [facility] [address] [place] [address], [address], 02/10/2022 17:22:50 02/08/20 22 02/07/2022 HIV 1/2 ANTIG EN/AN TIBOD Y, REFLE X CONFI RMATI ON HIV Ag-Ab total quant 0.14 idx <1.00 Not Available [facility] [address] [place], [place] [address], [place], [address], 02/10/2022 17:22:51 02/08/20 22 02/07/2022 HIV 1/2 ANTIG EN/AN TIBOD Y, REFLE X CONFI RMATI ON HIV Ag-Ab total Non-re active non-re active Not Available [facility] [address] [place] [address], [address], 02/10/2022 17:22:51 02/08/20 22 02/07/2022 HIV 1/2 ANTIG EN/AN TIBOD Y, REFLE X CONFI RMATI ON HIV-1 antibody quant 0.14 idx <1.00 Not Available [facility] [address] [place] [address], [address], 02/10/2022 17:22:51 02/08/20 22 02/07/2022 HIV 1/2 ANTIG EN/AN TIBOD Y, REFLE X CONFI RMATI ON HIV-1 antibody Non-re active non-re active Not Available [facility] [address] [place] [address], [address], 02/10/2022 17:22:51 02/08/20 22 02/07/2022 HIV 1/2 ANTIG EN/AN TIBOD Y, REFLE X CONFI RMATI ON HIV-1 antigen (P24) quant 0.07 idx <1.00 Not Available [facility] [address] [place] [address], [address], 02/10/2022 17:22:51 02/08/20 22 02/07/2022 HIV 1/2 ANTIG EN/AN TIBOD Y, REFLE X CONFI RMATI ON HIV-1 antigen (P24) Non-re active non-re active Not Available [facility] [address] [place] [address], [address], 02/10/2022 17:22:51 02/08/20 22 02/07/2022 HIV 1/2 ANTIG EN/AN TIBOD Y, REFLE X CONFI RMATI ON HIV-2 antibody quant 0.11 idx <1.00 Not Available [facility] [address] [place] [address], [address], 02/10/2022 17:22:51 02/08/20 22 02/07/2022 HIV 1/2 ANTIG EN/AN TIBOD Y, REFLE X CONFI RMATI ON HIV-2 antibody Non-re active non-re active HIV testi ng is perfo rmed using [employer] oassa y techn ology . The final overa ll HIV Ag-Ab resul t is deter mined based on the final resul t for each indiv idual debra te. If any of the debra jimi has 2 or more repli cates that are REACT SASKIA, the final overa ll HIV Ag-Ab resul t is also React saskia. A Non-R eacti ve test resul t at any point in the inves tigat ion of indiv idual subje cts does not precl ude the possi bilit y of expos ure to or infec tion with HIV-1 and/o r HIV-2 . Non-R eacti ve resul ts can occur if the quant ity of marke r prese nt in the sampl e is below the detec tion limit s of the assay . React saskia speci mens must be inves tigat ed by addit ional , more speci fic suppl ement al tests . Speci men confi rmati on will be perfo rmed by the Dasient HIV 1/2 Suppl ement al Assay . The perfo rmanc e of this assay has not been estab lishe d for neona jimi and the assay shoul d not be used in indiv idual s young er than 2 years of age. Not Available [facility] [address] [place] [address], [address], 02/10/2022 17:22:51 02/08/20 22 02/07/2022 RPR SCREE N/REF YVES TITER /FTA RPR screen Nonrea ctive nonrea ctive Not Available [facility] [address] [place] [address], [address], 02/10/2022 17:22:51 02/08/20 22 02/07/2022 HERPE S SIMPL EX VIRUS , 1 AND 2 IGM, IFA hsv 1 IgM screen NEGATI VE Not Available [facility] [address] [place] [address], [address], 02/10/2022 17:22:52 02/08/20 22 02/07/2022 HERPE S SIMPL EX VIRUS , 1 AND 2 IGM, IFA hsv 2 IgM screen NEGATI VE REFER ENCE RANGE : NEGAT SASKIA HSV IgM is detec table in serum from >90% of patie nts with prima ry HSV infec tion. Howev er, HSV IgM canno t be relia mejia used to diagn ose acute /rece nt infec tion as it is also found in 30% of patie nts with react ivate d HSV. This test may not disti nguis h betwe en HSV-1 IgM and HSV-2 IgM due to cross -reac tivit y. To diagn ose acute genit al or mucos al HSV infec tion, direc t detec tion from a lesio n by cultu re or molec ular metho ds is prefe rred. HSV IgM posit ivity shoul d be confi rmed by HSV-1 /2 type- speci fic IgG testi ng. This test was devel oped and its debra tical perfo rmanc e jacob cteri stics have been deter mined by [employer]. It has not been clear ed or appro linda by FDA. This assay has been valid ated pursu ant to the CLIA regul ation s and is used for clini maxi purpo ses. Perfo rming Organ izati on [facility]: Site ID: EZ Name: [facility]Derick [facility] tran , Addre ss: [address] [place] [address] Dire tor: Cady griffin MD,Ph D,LILLIANA Not Available [facility] [address] [place], [address], 02/10/2022 17:22:52 02/08/20 22 02/07/2022 HSV TYPE 2, REFLE XED hsv 2 NOT ISOLAT ED REFER ENCE RANGE : NOT ISOLA KENJI Perfo rming Organ izati on [facility] n: Site ID: EZ Name: [facility] , Addre ss: [address] [place] [address] Direc tor: Cady griffin MD,Ph D,LILLIANA Not Available [facility] [address] [place], [address], 02/14/2022 18:32:47 02/08/20 22 02/07/2022 HSV TYPE 1, REFLE XED hsv 1 ISOLAT ED abnormal REFER ENCE RANGE : NOT ISOLA KENJI Perfo rming Organ izati on Infor matio n: Site ID: EZ Name: [facility] , Addre ss: [address] [place] [address] Dire tor: Cady griffin MD,Ph D,LILLIANA Not Available [facility] [address] [place], [address], 02/14/2022 18:32:48 02/08/20 22 02/07/2022 CULTU RE: HERPE S SIMPL EX VIRUS (HSV) , REFLE X TYPIN G source SWAB Not Available [facility] [address] [place], [address], 02/14/2022 18:32:48 02/08/20 22 02/07/2022 CULTU RE: HERPE S SIMPL EX VIRUS (HSV) , REFLE X TYPIN G hsv culture, body fluid ISOLAT ED abnormal REFER ENCE RANGE : NOT ISOLA KENJI Perfo rming Organ izati on Infor matio n: Site ID: EZ Name: [facility] , Addre ss: [address] [place] [address] Direc tor: Cady griffin MD,Ph D,LILLIANA Not Available [facility] [address] [place], [address], 02/14/2022 18:32:48 11/30/19 24 11/30/2023 VAGIN ITIS/ VAGIN OSIS, DNA PROBE satya sp. detection, direct probe Negati ve negati ve Not Available [facility] (Lab) [address] [facility], [place], [address], 12/03/2023 09:59:45 11/30/19 24 11/30/2023 VAGIN ITIS/ VAGIN OSIS, DNA PROBE gardnerella vag. detection, direct probe Negati ve negati ve Not Available [facility] (Lab) [address] [facility], [place], [address], 12/03/2023 09:59:45 11/30/19 24 11/30/2023 VAGIN ITIS/ VAGIN OSIS, DNA PROBE trichomonas vag. detection, direct probe Negati ve negati ve Not Available [facility] (Lab) [address] [facility], [place], [address], 12/03/2023 09:59:45 Result Notes None recorded. Problems Name Problem SNOMED Code Status Onset Date Resolution Date Notes Provider Name and Address Organization Details Recorded Time Routine antenata l care Completed 201004/13/2021 Supervis ion of other normal pregnanc y;Record ed Elsewher e: No Locat ion: [facility] S ource: EHR Hydrochloric Area Supervisor derick: N Practi ce ID: [id number] [place] lable Time: 10:30:00 AM Tanika romero [facility] 15:53:32 Amenorrh ea [id number] Completed 201004/13/2021 Absence of menstrua tion;Rec orded Elsewher e: No Locat ion: [facility] S ource: EHR Hydrochloric Area Supervisor derick: N Practi ce ID: [id number] [place] lable Time: 10:30:00 AM Tanika romero [facility] 15:52:06 Primigra sonia [id number] Completed 201004/13/2021 Supervis ion of normal first pregnanc y;Practi ce ID: [id number] Tanika romero [facility] 15:53:24 anatomy study Completed 201004/13/2021 [facility] ANATMC SURVEY;P olutice ID: 0001 Tanika Martineztz nick, [facility] 15:52:32 Obstetri c high vaginal lacerati on - delivere d [id number] Completed 201104/13/2021 High vaginal lacerati on, with delivery ;Recorde d Elsewher e: No Locat ion: [facility] S ource: EHR Hydrochloric Area Supervisor derick: N Chris ce ID: [id number] [place] lable Time: 03:45:00 PM Tanika Cid [facility], [facility] 15:53:11 Postpart um care Completed 201104/13/2021 Routine postpart um follow-u p;Record ed Elsewher e: No Locat ion: [facility] S ource: EHR Hydrochloric Area Supervisor derick: Alicia Perez ce ID: [id number] [place] lable Time: 01:00:00 PM Tanika Jose Roberto [facility], [facility] 15:53:12 Pregnanc y test negative [id number] Completed 201104/13/2021 Pregnanc y examinat ion or test, negative result;R ecorded Elsewher e: No Locat ion: [facility] S ource: EHR Hydrochloric Area Supervisor derick: N Chris ce ID: [id number] [place] lable Time: 02:00:00 PM Tanika Cid [facility], [facility] 15:53:17 Implanta tion of subcutan eous contrace ptive Completed 201104/13/2021 Insertio n of implanta ble subderma l contrace ptive;Re corded Elsewher e: No Locat ion: [facility] S ource: EHR Hydrochloric Area Supervisor derick: N Herbertti ce ID: [id number] [place] lable Time: 02:00:00 PM Tanika Cid nick, [facility] 15:53:05 Ill-defi mali intestin al infectio n Completed 201104/13/2021 No Show Fee;Prac los ID: 0001 Tanika Cid [facility], [facility] 15:52:58 Respirat ory finding of chest [id number] Completed 201104/13/2021 Other symptoms involvin g respirat ory system and chest;Re corded Elsewher e: No [facility]: EHR Hydrochloric Area Supervisor derick: N Practi ce ID: [id number] [place] lable Time: 01:00:00 PM Tanika Cid [facility] 15:53:27 Family planning surveill ance Completed 201104/13/2021 Surveill ance of other contrace ptive method;R ecorded Elsewher e: No Locat ion: [facility] S ource: EHR Hydrochloric Area Supervisor derick: N Practi ce ID: [id number] [place] lable Time: 01:00:00 PM Tanika Martineztz [facility] 15:52:30 Headache [id number] Completed 201104/13/2021 Headache ;Recorde d Elsewher e: No Locat ion: [facility] S ource: EHR Hydrochloric Area Supervisor derick: N Practi ce ID: [id number] [place] lable Time: 04:15:00 PM Tanika Cid [facility] 15:52:55 Dysfunct ional uterine bleeding Completed 201104/13/2021 Other disorder s of menstrua tion and other abnormal bleeding from female genital tract;Re corded Elsewher e: No Locat ion: [facility] S ource: EHR Hydrochloric Area Supervisor derick: N Practi ce ID: [id number] [place] lable Time: 04:15:00 PM Tanika Cid [facility] 15:52:21 Subcutan eous contrace ptive implant present [id number] Completed 201104/13/2021 Surveill ance of implanta ble subderma l contrace ptive;Re corded Elsewher e: No Locat ion: [facility] Chris ce ID: [id number] [place] lable Time: 02:45:00 PM Tanika romero, [facility] 15:53:47 Speciali zed medical examinat ion Completed 201204/13/2021 Gynecolo gical Examinat ion;Adrian rded Elsewher e: No Locat ion: [facility]: N Herbertti ce ID: [id number] [place] lable Time: 01:00:00 PM Tanika romero, [facility] 15:53:45 Screenin g for malignan t neoplasm of cervix Completed 201204/13/2021 Pap Smear;Pr actice ID: 0001 Tanika Cid [facility], [facility] 15:53:34 Pregnanc y test positive [id number] Completed 201204/13/2021 Positive Pregnanc y Test;Pra ctice ID: 0001 Tanika Cid [facility], [facility] 15:53:19 Uterine size for dates discrepa ncy [id number] Completed 201204/13/2021 UTERINE SIZE KIARA-ANTE PAR;Adrian rded Elsewher e: No Locat ion: [facility] Herbertti ce ID: 0001 [place] lable Time: 02:30:00 PM Tanika romero, [facility] 15:53:57 Ultrason ography Completed 201204/13/2021 Antenata l screenin g for malforma tion using ultrason ics;Adrian rded Elsewher e: No Locat ion: [facility] N Chris ce ID: 0001 [place] lable Time: 09:15:00 AM Tanika romero [facility] 1 15:53:52 Antenata l screenin g Completed 201204/13/2021 Antenata l screenin g for malforma tion using ultrason ics;Adrian rded Elsewher e: No Locat ion: Ronel reyna [facility] S ource: EHR Hydrochloric Area Supervisor derick: N Practi ce ID: 0001 [place] lable Time: 09:15:00 [facility]:52:11 Congenit al malforma tion [id number] Completed 201204/13/2021 Antenata l screenin g for malforma tion using ultrason ics;Adrian rded Elsewher e: No [facility] Hydrochlor[facility] Area Supervisor derick: N Herbertti ce ID: 0001 [place] lable Time: 09:15:00 AM Tanika romero, [facility] 15:52:17 Delivery normal [id number] Completed 201304/13/2021 Normal delivery ;Practic e ID: 0001 Tanika Cid [facility] 15:52:19 Syphilis test finding [id number] Completed 201604/13/2021 Encntr screen for infectio ns w sexl mode of transmis s;Record ed Elsewher e: No [facility]: E[facility] Hydrochlor[facility] Area Supervisor derick: N Practi ce ID: 0001 [place] lable Time: 10:45:00 AM Tanika romero [facility] 1 15:53:48 Infectio n screenin g Completed 201604/13/2021 Encounte r for screenin g for oth infec/pa rastc diseases ;Recorde d Elsewher e: No Locat ion: [facility] S ource: EHR Hydrochloric Area Supervisor derick: N Herbertti ce ID: 0001 [place] lable Time: 10:45:00 AM Tanika Cid nick, [facility] 15:52:[address] Concept Completed 201604/13/2021 Encntr for equestrian trainer exam (general ) (routine ) w/o abn findings ;Recorde d Elsewher e: No Locat ion: [facility] S ource: EHR Hydrochloric Area Supervisor derick: N Practi ce ID: 0001 [place] lable Time: 10:45:00 AM Tanika Cid nick, [facility] 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 15:53:38 Finding of contents of cervix [id number] Completed 201604/13/2021 Weeks of gestatio n of pregnanc y not specifie d;Record ed Elsewher e: No Locat ion: [facility] Practi ce ID: 0001 [place] lable Time: 04:00:00 PM Tanika Cid nick, [facility] 15:52:34 Pregnanc y detectio n examinat ion Completed 201604/13/2021 Encounte r for pregnanc y test, result positive ;Practic e ID: 0001 Tanika Cid nick, [facility] 15:53:14 Uterine size for dates discrepa ncy Completed 201604/13/2021 Uterine size-randy e discrepa ncy, first trimeste r;Practi ce ID: 0001 Tanika romero, [facility] 15:53:55 Threaten ed miscarri age [id number] Completed 201604/13/2021 Threaten ed ;Recorde d Elsewher e: No Locat ion: Ronel orellana [facility] S ource: EHR Hydrochloric Area Supervisor derick: N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 patients with strong genetic history of female cancer. If interested contact the office. Engage in daily exercise of low impact aerobic exercise 45-60 minutes 4-5 times weekly. Avoid tobacco and illicit drugs as well as using moderation with alcohol intake less than 1-2 8 oz beverages daily. This lifestyle behavior pattern will lead to less health conditions and longer life span. If BMI greater than 25 weight watchers or dietary consult advised. Patient received above instructio ns, and questions have been answered. If you have any questions please call or respond to this email. Patient was made aware of the patient portal and may obtain a paper copy of today's plan if desired. Pap sent IUD strings seen Vaginitis [id number] N76.0 Vag cx's sent for abn d/c & odor. Will wait to treat until results return. VCG sheet given for review. [id number] Billy Balbuena MD [facility] [address] [address] 04/13/2020 09:51:37 04/13/2020 10:31:26 Pain in pelvis 43196045 R10.2 N83.292 [id number] [facility] [address] [address] 04/13/2020 10:19:20 04/13/2020 11:03:45 Pain in pelvis 88457593 R10.2 TVUS reviewed Resolving cyst present She is asymptomat ic today & feeling significan tly better. IUD in place. We agreed to monitor & she will call if any further issues or sx's return. Patient is to contact office or go to nearest ED/Urgent care if fever >/= 100.1, pain, excessive bleeding, unusual drainage or swelling in area of concern; or experienci ng worsening sx's or new onset of concerning sx's. Understand ing verbalized . All questions answered to patient satisfacti on. Time spent in visit is a total of 15 mins with at least 50% of visit consisting of counseling and review of plan of care. [id number] Kayleigh Fofana, [facility] [address] [address] 04/13/2021 15:41:28 04/13/2021 17:06:43 Vaginitis 26616221 N76.0 [id number] Janet Hardin [facility] [address] [address] 05/12/2021 12:41:18 05/12/2021 13:31:06 Gynecologic examination [id number] Z01.419 Take Calcium with Vitamin D 1200mg daily if not receiving in daily diet. It is strongly advised to have an annual flu shot and up can obtain at most pharmacies . If you have not had a TDap shot in the last 10 years you should obtain one as well. Discussed with patient & provided with informatio n regarding Gardisil vaccine to prevent the 4 strains for HPV that cause cervical cancer if under age 26. Encourage safe sexual practices, to use condoms and limit partners if not already in a monogamous relationsh ip. Do monthly self breast exams. Have mammogram yearly or every other year depending on family history. BRCA testing is now available for patients with strong genetic history of female cancer. If interested contact the office. Engage in daily exercise of low impact aerobic exercise 45-60 minutes 4-5 times weekly. Avoid tobacco and illicit drugs as well as using moderation with alcohol intake less than 1-2 8 oz beverages daily. This lifestyle behavior pattern will lead to less health conditions and longer life span. If BMI greater than 25 weight watchers or dietary consult advised. Patient received above instructio ns, and questions have been answered. If you have any questions please call or respond to this email. Patient was made aware of the patient portal and may obtain a paper copy of today's plan if desired. Pap sent IUD strings Juana Mirena IUD prevents for up to 7 years, and also helps with heavy periods for up to 5 years in women who choose an IUD for control. STD sent Genetic screen discussed No issues or concerns [id number] Jaent Hardin [facility] [address],[place] [address] 02/04/2022 10:10:41 02/07/2022 16:35:12 Vaginitis 44008566 N76.0 Suspect BV on examExt panel swab sent since this is occurred >1-2x in 6mos.STD screen previously updated & declines new partnerRx sent Counseled on medication R/B's, Most common side effects, & use. All questions were answered to patient satisfacti on. Time spent in visit is a total of 15 mins with at least 50% of visit consisting of counseling and review of plan of care. [id number] Janet Hardin [facility] [address],[place] [address] 02/07/2022 17:48:31 02/08/2022 16:13:23 Blister of vulva without infection 1194987 S30.824A Suspect HSVCounsel ed on HSVSend labs/cultu resRx sent to start until testing back Counseled on medication R/B's, Most common side effects, & use. All questions were answered to patient satisfacti on. Time spent in visit is a total of 15 mins with at least 50% of visit consisting of counseling and review of plan of care. 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 Okay per SP to resend Valtrex and lidocaine. Pt coming in for [facility] on 12/21/2023 and will discuss if she wants HSV 1/2 blood work completed again as she never repeated this like CF duran d. Health Concerns Section Related Observation LastModified by Organization Detai ls LastModified Time None Recorded Concern Status LastModified by Organization Details LastModified Time None Recorded Advance Directives Directive None Recorded Payers Insurance Date Sequence Insurance Name Policy Number Policy Stoddard Covered Member ID Stoddard Member ID Guarantor Name 02/29/2024 1 [facility] (MEDICAID HMO) [id number] Mary Anne Holbrook [id number] Notes Date Note Type Note Provider Name and Address Organization Details Recorded Time 04/13/20 21 text/ht ml Vaginal/Vulvar ProblemReported by Patientthinks has yeast, did a bath bomb and is very sensitive to scents, has had yeast before but monistat causes pain, diflucan usually works, creamy white d/c with irritationROS as noted in the HPI Kayleigh Fofana, [facility] [address], [place], [address], [facility] 04/13/2021 16:01:41 05/12/19 22 text/ht ml Annual GYNReported by PatientHistoryFor history, patient reportsno gynecologic complaints.Genitourinary symptomsFor menstrual cycle, patient reportsnormal menses. For urinary symptoms, patient reportsno hematuriaandno incontinence. For vulva, patient reportsno genital lesion. For vagina, patient reportsnormal vaginal discharge.Breast symptomsFor breast, patient reportsno breast pain,no breast lump, andno nipple discharge.ContraceptionFor current contraception, patient reportssatisfied with current contraceptionandintrauterine device (iud).Endocrine symptomsFor sexual complaints, patient reportsno sexual complaints,no pain during intercourse, andnormal libido. For menopausal symptoms, patient reportsno menopausal symptomsandnormal vaginal lubrication.Psychological symptomsFor psychological symptoms, patient reportsno depression,no anxiety, andno pmdd.Preventative measuresFor preventive measures, patient reportsencourage self breast examination,encourage regular exercise,encourage no tobacco use, andencourage regular mammograms starting age 40. Janet Hardin, [facility] [address], [place], [address], [facility] 05/12/2021 13:19:33 02/05/20 22 text/ht ml Vaginal/Vulvar ProblemReported by PatientHPIFor associated symptoms, patient reportsvaginal itching,vaginal irritation, andvulvar itching/irritationbut reportsno vaginal pain,no vulvar swelling/erythema,no vulvar pain,no vulvar lesions,no pelvic pain,no dyspareunia,no dysuria,no fever, andno abdominal pain. For location, patient reportsvulvaandvagina. For onset/timing, patient reportsabrupt. For duration, patient reportspresent for 1-7 days. For quality, patient reportsitchingandirritation(d/c & odor). For severity, patient reportsmild. For context, patient reportssexually active (same partner-monogamous). For alleviating factors, patient reportsnone. For aggravating factors, patient reportsnone.ROS as noted in the [facility] Janet Hardin [facility] [address], [place], [address], [facility] 02/04/2022 12:23:31 02/08/20 22 text/ht ml Vaginal/Vulvar ProblemReported by PatientHPIFor associated symptoms, patient reportsvulvar itching/irritationandvulvar lesionsbut reportsno vaginal itching,no vaginal irritation,no vaginal pain,no vulvar swelling/erythema,no vulvar pain,no pelvic pain,no dyspareunia,no dysuria,no fever, andno abdominal pain. For location, patient reportsvulva. For onset/timing, patient reportsabrupt. For duration, patient reportspresent for 1-7 days. For quality, patient reportspainfulandmultiple lesions/sores. For severity, patient reportsmild. For context, patient reportssexually active (only two sexual partners). For alleviating factors, patient reportsnone. For aggravating factors, patient reportsnone.ROS as noted in the [facility] Janet Hardin [facility] [address], [place], [address], [facility] 02/07/2022 19:40:05 11/30/19 24 text/ht ml Vaginal/Vulvar ProblemReported by Patient Katy romreo, [facility] 11/30/2023 13:45:07 OBGyn Episode Ob Episode Information Episode Created Date Number of Fetuses Patient Bloodtype Patient rh Status Prepregnancy Weight lbs Domestic Partner Domestic Partner Phone Father Name Machinist Wood Status 11/15/19 20 1 CLOSED Fetus Data First Name Last Name Admitted to NICU Weight (g) Sex Living Outcome Pediatric Complications Fetus ID Race Codes Race Delivery Type 3259.96 5704 F Full Term [id number] Vaginal Delivery Armond Calculation Initial Armond Date Initial Exam Date Initial Exam Provider Initial Ultrasound Date Last Menstrual Period Date Ultra Sound Weeks Gestation 0 Eighteen To Twenty Week Armond Update Ultra Sound Date Fundal Height At Umbil Quickening Date Ultra Sound Latest Weeks Gestation Final Armond Confirmed By Final Armond Confirmed Date Final Armond Date Ultra Sound Latest Days Gestation 0 0 Menstrual History Last Menstrual Date Menses Monthly On Bcp Conception Prior Menses Frequency Hcg Plus Date Menarche Onset Age Delivery Information Delivery Date Delivery Type Labor Anesthesia Weeks Gestation Incision Type Labor Labor Length Hrs Delivered By Post Complications Tubal Sterilization Discharge Date Comments 7 38 Discharge Information Feeding Method Contraceptive Method Maternal HG B and HCT Levels Ob Episode Information Episode Created Date Number of Fetuses Patient Bloodtype Patient rh Status Prepregnancy Weight lbs Domestic Partner Domestic Partner Phone Father Name Machinist Wood Status 11/15/19 20 1 CLOSED Fetus Data First Name Last Name Admitted to NICU Weight (g) Sex Living Outcome Pediatric Complications Fetus ID Race Codes Race Delivery Type 3033.16 9704 F Prematur e 2851 Vaginal Delivery Armond Calculation Initial Armond Date Initial Exam Date Initial Exam Provider Initial Ultrasound Date Last Menstrual Period Date Ultra Sound Weeks Gestation 0 Eighteen To Twenty Week Armond Update Ultra Sound Date Fundal Height At Umbil Quickening Date Ultra Sound Latest Weeks Gestation Final Armond Confirmed By Final Armond Confirmed Date Final Armond Date Ultra Sound Latest Days Gestation 0 0 Menstrual History Last Menstrual Date Menses Monthly On Bcp Conception Prior Menses Frequency Hcg Plus Date Menarche Onset Age Delivery Information Delivery Date Delivery Type Labor Anesthesia Weeks Gestation Incision Type Labor Labor Length Hrs Delivered By Post Complications Tubal Sterilization Discharge Date Comments 2 36 true Discharge Information Feeding Method Contraceptive Method Maternal HG B and HCT Levels Ob Episode Information Episode Created Date Number of Fetuses Patient Bloodtype Patient rh Status Prepregnancy Weight lbs Domestic Partner Domestic Partner Phone Father Name Machinist Wood Status 11/15/19 20 1 CLOSED Fetus Data First Name Last Name Admitted to NICU Weight (g) Sex Living Outcome Pediatric Complications Fetus ID Race Codes Race Delivery Type 3231.84 3 F Full Term 2852 Vaginal Delivery Armond Calculation Initial Armond Date Initial Exam Date Initial Exam Provider Initial Ultrasound Date Last Menstrual Period Date Ultra Sound Weeks Gestation 0 Eighteen To Twenty Week Armond Update Ultra Sound Date Fundal Height At Umbil Quickening Date Ultra Sound Latest Weeks Gestation Final Armond Confirmed By Final Armond Confirmed Date Final Armond Date Ultra Sound Latest Days Gestation 0 0 Menstrual History Last Menstrual Date Menses Monthly On Bcp Conception Prior Menses Frequency Hcg Plus Date Menarche Onset Age Delivery Information Delivery Date Delivery Type Labor Anesthesia Weeks Gestation Incision Type Labor Labor Length Hrs Delivered By Post Complications Tubal Sterilization Discharge Date Comments 4 39 Discharge Information Feeding Method Contraceptive Method Maternal HG B and HCT Levels Ob Episode Information Episode Created Date Number of Fetuses Patient Bloodtype Patient rh Status Prepregnancy Weight lbs Domestic Partner Domestic Partner Phone Father Name Machinist Wood Status 04/13/20 21 1 CLOSED Fetus Data First Name Last Name Admitted to NICU Weight (g) Sex Living Outcome Pediatric Complications Fetus ID Race Codes Race Delivery Type , Spontane ous [id number] Armond Calculation Initial Armond Date Initial Exam Date Initial Exam Provider Initial Ultrasound Date Last Menstrual Period Date Ultra Sound Weeks Gestation 0 Eighteen To Twenty Week Armond Update Ultra Sound Date Fundal Height At Umbil Quickening Date Ultra Sound Latest Weeks Gestation Final Armond Confirmed By Final Armond Confirmed Date Final Armond Date Ultra Sound Latest Days Gestation 0 0 Menstrual History Last Menstrual Date Menses Monthly On Bcp Conception Prior Menses Frequency Hcg Plus Date Menarche Onset Age Delivery Information Delivery Date Delivery Type Labor Anesthesia Weeks Gestation Incision Type Labor Labor Length Hrs Delivered By Post Complications Tubal Sterilization Discharge Date Comments 9 Discharge Information Feeding Method Contraceptive Method Maternal HG B and HCT Levels
--- OUTSIDE RECORDS SUMMARY | 2025-02-04 11:51 | XMS_ITS | Clinical Summary ---
Author Organization [facility] Address [address] [place] [address] Care Team Providers Care Blanching Machine Operator Name Role Phone Unavailable Primary Care [...]
--- OUTSIDE RECORDS SUMMARY | 2025-02-04 11:52 | XMS_ITS | Clinical Summary ---
Author Organization [facility] Address [address] [place] [address] Phone Care Team Providers Care Examining Officer Name Role Phone Provider, Unknown Primary Care Provider Unavaila ble Social History Tobacco Use Types Packs/Day Years Used Date Smoking Tobacco: Never Assessed Comments Unknown Sex and Gender Information Value Date Recorded Sex Assigned at Not on file Legal Sex Female 8:59 PM CDT Gender Identity Not on file Sexual Orientation Not on file Plan of Treatment Not on file Care Teams Examining Officer Relationship Specialty Start Date End Date Provider, Unknown UNKNOWN PCP - General 09/08/16
--- OUTSIDE RECORDS SUMMARY | 2025-02-04 11:52 | XMS_ITS | Clinical Summary ---
Author Organization [facility] Address [address] [place] [address] Phone Care Team Providers Care Road Design Draftsperson Name Role Phone Unavailable Primary Care Provider Unavailabl e Active Problems Problem Noted Date Diagnosed Date High-risk 07/20/2011 Social History Tobacco Use Types Packs/Day Years Used Date Smoking Tobacco: Never Assessed Comments Unknown Sex and Gender Information Value Date Recorded Sex Assigned at Not on file Legal Sex Female 6:08 AM DISPLAY ASSOCIATE Gender Identity Not on file Sexual Orientation [...]
--- OUTSIDE RECORDS SUMMARY | 2025-02-04 11:52 | XMS_ITS | Clinical Summary ---
Author Organization [facility] Address [address] [place] [address] Care Team Providers Care Resident Medical Officer Name Role Phone Unavailable Primary Care Provider Unavailabl e Source Comments [facility],non-owned Affiliates and Associated Physician Practices is amultiple site organization consisting of ambulatory clinics and hospital sitesin [place], [place], [place] and [place]. This disclosure is being madepursuant to the Care Everywhere program and may not contain all information available regarding this patient. Last updated 18.[facility] Conferensum Allergies Active Allergy Reactions Criticality Noted Date [...] on file Legal Sex Female 8:04 AM BEHAVIORAL HEALTH DIRECTOR Gender Identity Not on file Sexual Orientation Not on file Last Filed Vital Signs Vital Sign Reading Time Taken Comments Blood Pressure 111/63 02/02/2017 9:07 AM CDT Pulse 106 02/02/2017 9:07 AM CDT Temperature - - Respiratory Rate 16 03/15/2010 1:38 PM BEHAVIORAL HEALTH DIRECTOR Oxygen Saturation - - Inhaled Oxygen Concentration - - Weight 46.7 kg (102 lb 15.3 oz) 03/15/2010 1:38 PM BEHAVIORAL HEALTH DIRECTOR Height 157 cm (5' 1.81) 03/15/2010 1:38 PM BEHAVIORAL HEALTH DIRECTOR Body Mass Index 18.95 03/15/2010 1:38 PM BEHAVIORAL HEALTH DIRECTOR Plan of Treatment Health Maintenance Due Date [...] patient's age to complete this topic Insurance [facility]
[2025-02-04] MEDS: ACETAMINOPHEN 500 MG TABLET 1000 MG PO (11:53)
--- NOTE | 2025-02-04 11:55 | ED.HA ---
HPI - Headache General Chief Complaint: Headache Stated Complaint: migraine, N/V Time Seen by Provider: 02/04/25 10:35 Source: patient Mode of arrival: ambulatory Limitations: no limitations History of Present Illness HPI Narrative: Patient is a 29-year-old female who presents the ED with report of a headache. Patient reports she has had a headache over the past few days. Headache became worse this morning and she developed nausea and vomiting. She has history of migraines and typically takes amitriptyline, but denied improvement with this. States this does feel typical of her normal migraines. Present throughout her bilateral temporal/periorbital region, radiates posteriorly into her neck. Has not taken anything for pain today. Reports photophobia, phonophobia. Denies fevers. Related Data Home Medications ?Medication ?Instructions ?Recorded ?Confirmed ?Last Taken ?Type amitriptyline 25 mg tablet 25 mg PO QHS 08/01/21 12/21/22 Unknown History ubrogepant 100 mg tablet (Ubrelvy) 100 mg PO ONCE 08/01/21 12/21/22 Unknown History amoxicillin 500 mg-potassium 1 tablet PO Q12H 12/21/22 12/21/22 Unknown History clavulanate 125 mg tablet (Augmentin) escitalopram oxalate 20 mg tablet 20 mg PO DAILY 12/21/22 12/21/22 Unknown History (Lexapro) propranolol 10 mg tablet 10 mg PO Q12H PRN 12/21/22 12/21/22 Unknown History Allergies Allergy/AdvReac Type Severity Reaction Status Date / Time morphine Allergy Unknown CHOKING Verified 02/04/25 10:29 Opioids - Morphine Analogues Allergy Unknown unknown Verified 02/04/25 10:29 Review of Systems Review of Systems: All systems reviewed & are unremarkable except as noted in HPI. All systems reviewed & are unremarkable except as noted in HPI and below PMFSH Past Medical History Medical History Impacted cerumen of both ears Patient denies medical problems Surgical History Surgical History History of adenoidectomy History of placement of ear tubes History of tonsillectomy Social History Social History Social History: Caffeine-occasionally Smoking status: Never smoker Tobacco type: e-cigarettes/vaping Alcohol intake: current Alcohol use details: occasionally Substance use: never Substance use type: does not use Lack of Transportation: No Lack of Food: Never True Current Housing: I Have Housing Concerned About Future Housing: No Difficulty Paying Gas/Electric Bills: No Difficulty Paying for Meds: No Currently Unemployed: No Education: High School Diploma/GED Difficulty w/ Childcare or Family Care: No Gender identity (if verbalized by the patient): Female Exam Narrative: GENERAL: Well appearing, well-nourished, non-toxic, in no acute distress. HEAD: Normocephalic, atraumatic. NECK: No meningeal signs RESPIRATORY: Airway patent, respirations nonlabored. Clear to auscultation bilaterally, no rales, rhonchi, wheezing. CARDIOVASCULAR: Regular rate and rhythm without murmurs, rubs, or gallops. MUSCULOSKELETAL: Moves all extremities. No gross deformities. SKIN: Warm, dry, normal color. NEURO: A&O X3. Speech clear. Cranial nerves II-XII grossly intact. Steady gait. No ataxic movements. No focal deficits. PSYCHIATRIC: Appropriate mood and affect. Normal interaction. Course Vital Signs Vital signs: Vital Signs Temperature 98.2 F 02/04/25 10:50 Pulse Rate 94 02/04/25 10:50 Respiratory Rate 18 02/04/25 10:50 Blood Pressure 127/82 02/04/25 10:50 Pulse Oximetry 98 02/04/25 10:50 Oxygen Delivery Room Air 02/04/25 10:50 Temperature 98.2 F 02/04/25 10:50 Pulse Rate 84 02/04/25 13:22 Respiratory Rate 16 02/04/25 13:22 Blood Pressure 111/70 02/04/25 13:22 Pulse Oximetry 100 02/04/25 13:22 Oxygen Delivery Room Air 02/04/25 10:50 MDM - Headache MDM Narrative Medical decision making narrative: Patient's headache was not sudden in onset or maximal in severity. There are no focal neurological deficits on exam. Subarachnoid hemorrhage is felt to be unlikely at this time. There is no history of fever and neck is supple on evaluation without meningeal signs. Meningitis is felt to be unlikely. No traumatic history or signs of trauma on evaluation. CT brain negative. No vision changes or ocular signs of acute glaucoma. Patient feeling much better after migraine cocktail. Patient's headache is felt to be benign cephalgia and reasonable for further outpatient management. Advised patient to follow with PCP for further evaluation. Given reasons to return. Medical Records Attestation: I reviewed the patient's medical records. Imaging Data Attestation: I personally reviewed and interpreted this imaging study as follows: Radiologist's impression: ITS Impressions Head CT 02/04/25 11:36 IMPRESSION: 1. Normal head CT. Discharge Plan Discharge Clinical Impression: Migraine Qualifiers: Migraine type: unspecified Status migrainosus presence: without status migrainosus Intractability: not intractable Qualified Code(s): G43.909 - Migraine, unspecified, not intractable, without status migrainosus Patient Disposition: Home Condition: Stable Instructions: Antibiotic Form, Migraine Headache (ED), Acute Headache (ED) Additional Instructions: Continue Tylenol and ibuprofen, your home Amitriptyline as needed for further pain. Utilize Zofran as needed for further nausea. Get plenty of rest. Stay well hydrated. Recommend low light/ low stimulus environment, limiting screen time. Follow-up with your primary care doctor for further evaluation if needed. Return to the ED if you experience worsening or severe pain, severe dizziness, vision changes, unable to keep down food or drink, or any other symptoms of concern. Patient Language: [place] Island[place] Prescriptions: New ondansetron 4 mg tablet,disintegrating 4 mg PO Q8H PRN (Reason: nausea and vomiting) Qty: 15 0RF No Action amitriptyline 25 mg tablet 25 mg PO QHS Ubrelvy 100 mg tablet 100 mg PO ONCE Rx Instructions: as a single dose; may repeat once in >=2 hours after first dose if needed escitalopram oxalate [Lexapro] 20 mg tablet 20 mg PO DAILY propranolol 10 mg tablet 10 mg PO Q12H PRN amoxicillin-pot clavulanate [Augmentin] 500-125 mg tablet 1 tablet PO Q12H Follow-up/Referrals: Ethan,Yvonne Weeks MD [Primary Care Provider, Unknown] Time of Disposition: 14:42
[2025-02-04] MEDS: dexAMETHasone SOD PHOS INJ 10 MG/ML 1 ML VIAL IV PUSH (11:56)
[2025-02-04] MEDS: METOCLOPRAMIDE HCL INJ 10 MG/2 ML VIAL IV PUSH (12:03)
[2025-02-04] MEDS: KETOROLAC 30 MG/ML VIAL (*BKC) IV PUSH (12:14)
[2025-02-04] MEDS: SODIUM CHLORIDE 0.9% IV 1,000 ML 999 ML IV CONT (12:15)
[2025-02-04 13:22] VITALS: BP 111/70; PULSE 84; RESP 16; O2SAT 100
[2025-02-04 14:45] VITALS: BP 102/71; PULSE 75; RESP 16; O2SAT 98
== END 2025-02-04 14:45 | disposition home or self-care (01) ==
PROVIDERS: Emergency Provider Physician Assistant; PCP Emergency Medicine
DX: G43.909 Migraine, unspecified, not intractable, without status migrainosus (principal)
CPT/HCPCS: 70450; 96361; 96374; 96375; 99284; A9270; J1100; J1200; J1885; J2765; J7030